=== PATIENT | female | born 2000 | race Hispanic/Latino ===

== ENCOUNTER 2024-02-19 19:46 | Emergency (ER) | payer SELFPAY ==
--- NOTE | ~2024-02-19 | US_ITS ---
EXAMINATION: US OB <=14 wk fetus w TV DATE: 02/20/2024 01:14 INDICATION: Early . TECHNIQUE: Real-time transabdominal and transvaginal pelvic ultrasound was performed. COMPARISON: None. FINDINGS: TRANSABDOMINAL ULTRASOUND: The uterus measures 8.9 x 4.5 x 5.5 cm. TRANSVAGINAL ULTRASOUND: There is an intrauterine gestational sac. A yolk sac is identified. The fet al crown rump length measures 7 mm, which correlates with an estimated gestational age of 6 weeks and 4 day(s) (+/-) 4 day(s). heart motion is identified measuring 132 beats per minute (bpm) by M- mode Doppler. The right ovary measures 2.4 x 2.0 x 2.1 cm. The left ovary measures 2.8 x 1.9 x 2.4 cm . There is no free fluid in the pelvis. IMPRESSION: 1. Single living intrauterine gestation with estimated date of delivery of 10/11/2024. Reviewed, dictated and finalized at location A. IMPRESSION: 1. Single living intrauterine gestation with estimated date of delivery of 10/01.
[2024-02-19 19:55] VITALS: BP 110/58; PULSE 68; RESP 15; TEMP 36.4; O2SAT 99
[2024-02-19 22:16] LABS: BEDSIDEPREGUCG Positive
[2024-02-19 22:25] LABS: Add Urine Microscopic? YES; Appearance Urine Cloudy (Clear); Bacteria Urine 2+ /hpf; Bilirubin Urine Negative (Negative); Blood Urine 1+ (Negative); Color Urine Yellow (Yellow); Glucose Urine UA Negative (Negative); Ketones Urine 3+ mg/dL (Negative); Leukocyte Esterase Ur Trace LEU/UL (Negative); Nitrate Urine Negative (Negative); Non Pathogenic Casts 0-2; Protein Urine Trace mg/dL (Negative); Specific Grav Ur 1.034 (1.001-1.035); Squamous Epithelial Cell Urine Many /hpf (Few); pH Urine 5.5 (5.0-9.0)
[2024-02-19 23:16] LABS: Basophils Absolute Auto 0.1 K/mm3 (0.0-0.1); Basophils Percent Auto 0.5 % (0.2-1.2); Eosinophils Absolute Auto 0.2 K/mm3 (0-0.3); Eosinophils Percent Auto 1.4 % (0-4.4); Hematocrit 35.8 % (37.0-47.0); Hemoglobin 12.4 g/dL (12.0-15.0); Immature Granulocyte Absolute 0.04 K/mm3 (0.00-0.031); Immature Granulocyte Percent A 0.3 % (0-0.5); Lymphocytes Absolute Auto 3.94 K/mm3 (0.9-3.2); Lymphocytes Percent Auto 33.4 % (18.3-44.2); Mean Corpuscular HGB Conc 34.6 g/dl (32-36); Mean Corpuscular Hemoglobin 29.5 pg (26-34); Mean Corpuscular Volume 85.2 fl (80-100); Mean Platelet Volume 10.8 fl (7.4-10.4); Monocytes Absolute Auto 0.8 K/mm3 (0.1-0.6); Monocytes Percent Auto 6.5 % (2.6-8.5); Neutrophils Absolute Auto 6.8 K/mm3 (1.3-6.7); Neutrophils Percent Auto 57.9 % (45.5-73.1); Platelet Count Result 286 k/mm3 (150-375); Red Cell Distribution Width 11.9 % (11.5-14.5); White Blood Count 11.8 K/mm3 (4.5-10.0)
[2024-02-19 23:26] LABS: Alanine Aminotransferase 15 U/L (6-35); Albumin Level 4.4 g/dL (3.5-5.1); Alkaline Phosphatase 77 U/L (38-126); Anion Gap 14 mmol/L (4-12); Aspartate Amino Transferase 22 U/L (14-36); Bilirubin,Total 0.4 mg/dL (0.2-1.3); Blood Urea Nitrogen 11 mg/dL (7-17); Calcium 9.1 mg/dL (8.4-10.2); Carbon Dioxide 22 mmol/L (22-30); Chloride 101 mmol/L (98-107); Estimated Glomerular Filt Rate > 60; Glucose 90 mg/dL (65-110); Lipase 52 U/L (23-300); Potassium 3.7 mmol/L (3.4-5.0); Sodium 137 mmol/L (137-145)
--- NOTE | 2024-02-19 23:40 | ED.GENADULT ---
HPI - General Adult General Chief complaint: Abdominal Pain Stated complaint: abd pain Time Seen by Provider: 02/19/24 21:57 History of Present Illness HPI narrative: This is 24-year-old female at approximately 13 weeks gestation by last menstrual presenting for reddish brown discharge. This started yesterday. Is also associated with crampy abdominal pain down the middle of her abdomen. Patient also feels nauseous and has some lightheadedness. She denies any other complaints Related Data Allergies Allergy/AdvReac Type Severity Reaction Status Date / Time No Known Allergies Allergy Verified 02/19/24 19:47 Exam Narrative: APPEARANCE: No apparent distress. Head: atraumatic. EYES: EOMI, NOSE: Atraumatic NECK: Trachea midline RESPIRATORY: No increased rate of breathing clear to auscultation CARDIOVASCULAR: RRR, ABDOMINAL: Non-distended soft nontender no guarding rebound MUSCULOSKELETAl: No obvious deformities NEURO: Alert. Moving 4/4 extremities SKIN:: Warm, dry. Normal color PSYCHIATRIC: Normal affect Course Vital Signs Vital signs: Vital Signs Temperature 97.6 F 02/19/24 19:55 Pulse Rate 68 02/19/24 19:55 Respiratory Rate 15 02/19/24 19:55 Blood Pressure 110/58 L 02/19/24 19:55 Pulse Oximetry 99 02/19/24 19:55 Oxygen Delivery Room Air 02/19/24 19:55 Temperature 97.6 F 02/19/24 19:55 Pulse Rate 68 02/19/24 19:55 Respiratory Rate 15 02/19/24 19:55 Blood Pressure 110/58 L 02/19/24 19:55 Pulse Oximetry 99 02/19/24 19:55 Oxygen Delivery Room Air 02/19/24 19:55 Medical Decision Making [facility] Narrative Medical decision making narrative: -Course: 24-year-old female presenting with vaginal bleeding in . Urine indicative of infection. Before the ultrasound results or her Rh factor had returned the patient had to leave. Patient left without completing her workup. She was instructed to follow-up with her OBGYN. Given return cautions for bleeding given antibiotics for UTI. Vital Signs Vital Signs: Vital Signs Temperature 97.6 F 02/19/24 19:55 Pulse Rate 68 02/19/24 19:55 Respiratory Rate 15 02/19/24 19:55 Blood Pressure 110/58 L 02/19/24 19:55 Pulse Oximetry 99 02/19/24 19:55 Oxygen Delivery Room Air 02/19/24 19:55 Temperature 97.6 F 02/19/24 19:55 Pulse Rate 68 02/19/24 19:55 Respiratory Rate 15 02/19/24 19:55 Blood Pressure 110/58 L 02/19/24 19:55 Pulse Oximetry 99 02/19/24 19:55 Oxygen Delivery Room Air 02/19/24 19:55 Lab Data 02/19/24 23:09 02/19/24 23:09 Labs: Lab Results 02/19/24 02/19/24 02/19/24 Range/Units 22:13 22:14 23:08 WBC (4.5-10.0) K/mm3 RBC (4.2-5.4) M/mm3 Hgb (12.0-15.0) g/dL Hct (37.0-47.0) % MCV (80-100) fl MCH (26-34) pg MCHC (32-36) g/dl RDW (11.5-14.5) % Plt Count (150-375) k/mm3 MPV (7.4-10.4) fl Immature Gran % (Auto) (0-0.5) % Neut % (Auto) (45.5-73.1) % Lymph % (Auto) (18.3-44.2) % [place] % (Auto) (2.6-8.5) % Eos % (Auto) (0-4.4) % Baso % (Auto) (0.2-1.2) % Lymph # (Auto) (0.9-3.2) K/mm3 [place] # (Auto) (0.1-0.6) K/mm3 Eos # (Auto) (0-0.3) K/mm3 Baso # (Auto) (0.0-0.1) K/mm3 Abs Immat Gran (auto) (0.00-0.031) K/mm3 Absolute Neuts (auto) (1.3-6.7) K/mm3 Absolute Nucleated RBC (0.0-0.012) K/mm3 Nucleated RBC % (0.0-0.2) % Sodium (137-145) mmol/L Potassium (3.4-5.0) mmol/L Chloride (98-107) mmol/L Carbon Dioxide (22-30) mmol/L Anion Gap (4-12) mmol/L BUN (7-17) mg/dL Creatinine (0.7-1.0) mg/dL Estim Creat Clear Calc Estimated GFR (59 - ) Glucose (65-110) mg/dL Calcium (8.4-10.2) mg/dL Total Bilirubin (0.2-1.3) mg/dL AST (14-36) U/L ALT (6-35) U/L Alkaline Phosphatase (38-126) U/L Total Protein (6.3-8.2) g/dL Albumin (3.5-5.1) g/
[2024-02-19] MEDS: SODIUM CHLORIDE 0.9% IV 2,000 ML 999 ML IV CONT (23:49)
[2024-02-19] MEDS: ONDANSETRON INJ 4 MG/2 ML VIAL IV PUSH (23:49)
--- NOTE | 2024-02-20 00:40 | PC.NURSE ---
Pt to US at this time.
[2024-02-20 02:24] VITALS: BP 112/60; PULSE 69; RESP 16; TEMP 36.6; O2SAT 100
== END 2024-02-20 02:26 | disposition home or self-care (01) ==
PROVIDERS: Emergency Provider Emergency Medicine
DX: O20.0 Threatened abortion (principal); Z3A.13 13 weeks gestation of pregnancy
CPT/HCPCS: 36415; 76801; 76817; 80053; 81001; 81025; 83690; 84702; 85025; 85461; 86850; 86900; 86901; 87077; 87086; 87088; 96361; 96374; 99284; J2405; J7030

== ENCOUNTER 2024-04-19 00:09 | Emergency (ER) | payer MEDICAID, SELFPAY ==
[2024-04-19 00:14] VITALS: BP 114/65; PULSE 92; RESP 20; TEMP 36.6; O2SAT 99
[2024-04-19 00:20] VITALS: BP 114/65; PULSE 92; RESP 17; TEMP 36.6; O2SAT 99
--- NOTE | 2024-04-19 00:28 | ED.HA ---
HPI - Headache General Chief Complaint: Headache Stated Complaint: headache Time Seen by Provider: 04/19/24 00:20 History of Present Illness HPI Narrative: Patient is a 24-year-old female who is 15 weeks that presents ER with headache. Ongoing for several days. Associated with fullness in her ears. No change in hearing. No sinus congestion or sore throat or productive cough. Reports generalized aching of the head. Concerned because she had preeclampsia in her last . She is currently seeing Dr. Barr but is planning to transition her care to [facility]. She recently was diagnosed with a vaginal infection of her vagina and is taking an antifungal. No urinary frequency urgency or dysuria. No abdominal pain. No vaginal bleeding. She does have mild nausea and has had trouble eating because of it. Related Data Allergies Allergy/AdvReac Type Severity Reaction Status Date / Time No Known Allergies Allergy Verified 02/19/24 19:47 Review of Systems Review of Systems: All systems reviewed & are unremarkable except as noted in HPI and below Constitutional: Constitutional: Reports no additional constitutional complaints ENT: Reports system reviewed and no additional complaints, except as documented Cardiovascular: Cardiovascular: Reports no additional cardiovascular complaints Respiratory: Respiratory: Reports no additional respiratory complaints Gastrointestinal: Gastrointestinal: Reports no additional gastrointestinal complaints Genitourinary: Genitourinary: Reports no additional female genitourinary complaints Neurologic: Denies syncope, Reports headache(s), Denies focal weakness and Denies numbness Exam Narrative: GENERAL: Well-appearing, well-nourished, and in no acute distress. HEAD: Normocephalic, atraumatic. ENT: Mucous membranes moist. TM's normal bilaterally. Cerumen in the left ear canal w/o impaction. NECK: Supple. CHEST: Clear to auscultation. No respiratory distress. HEART: Regular rate and rhythm. Normal peripheral pulses. ABDOMEN: Soft, nontender, nondistended. EXTREMITIES: Normal range of motion. No edema. SKIN: Warm, dry, no rash. NEURO: Alert and oriented x3. PSYCH: Normal mood and affect. Course Course Emergency Course: Patient hydrated. Feels improved with antiemetics. urinalysis with white blood cells and bacteria. Will treat with cephalexin. Vital Signs Vital signs: Vital Signs Temperature 98 F 04/19/24 00:14 Pulse Rate 92 04/19/24 00:14 Respiratory Rate 20 04/19/24 00:14 Blood Pressure 114/65 04/19/24 00:14 Pulse Oximetry 99 04/19/24 00:14 Oxygen Delivery Room Air 04/19/24 00:14 Temperature 98 F 04/19/24 00:20 Pulse Rate 92 04/19/24 00:20 Respiratory Rate 17 04/19/24 00:20 Blood Pressure 114/65 04/19/24 00:20 Pulse Oximetry 99 04/19/24 00:20 Oxygen Delivery Room Air 04/19/24 00:14 MDM - Headache Lab Data Labs: Lab Results 04/19/24 04/19/24 Range/Units 00:53 00:54 Urine Color Dark yellow (Yellow) Urine Appearance Clear (Clear) Urine pH 5.5 (5.0-9.0) Ur Specific [place] 1.025 (1.001-1.035) Urine Protein Trace (Negative) mg/dL Urine Glucose (UA) Negative (Negative) mg/dL Urine Ketones 4+ H (Negative) mg/dL Ur Blood (Man) Negative (Negative) Urine Nitrate Negative (Negative) Urine Bilirubin Negative (Negative) Urine Urobilinogen 1.0 (<2.0) mg/dL Leukocyte Esterase Rfl 1+ H (Negative) AJ/UL Urine RBC 0-2 (0-2) /hpf Urine WBC 6-10 H (0-3) /hpf Ur Squamous Epith Cells Few (Few) /hpf Urine Bacteria 2+ H /hpf Urine Casts 0-2 Influenza A (RT-PCR) Negative (Negative) Influenza B (RT-PCR) Negative (Negative) RSV (RT-PCR) Negative (Negative) SARS-CoV-2 RNA (RT-PCR) Negative (Negative) Discharge Plan Discharge Clinical Impression: Headache, UTI (urinary tract infection) Patient Dispo
[2024-04-19] MEDS: ONDANSETRON INJ 4 MG/2 ML VIAL IV PUSH (01:09)
[2024-04-19] MEDS: SODIUM CHLORIDE 0.9% IV 1,000 ML 999 ML IV CONT (01:09)
[2024-04-19] MEDS: ACETAMINOPHEN 500 MG TABLET 1000 MG PO (01:18)
[2024-04-19 03:37] LABS: Influenza A QL RT-PCR Negative (Negative); Influenza B QL RT-PCR Negative (Negative); RSV RNA, RT-PCR Negative (Negative); SARS-CoV-2 RNA PCR Negative (Negative)
[2024-04-19 03:42] LABS: Add Urine Microscopic? YES; Appearance Urine Clear (Clear); Bacteria Urine 2+ /hpf; Bilirubin Urine Negative (Negative); Blood Urine Negative (Negative); Color Urine Dark Yellow (Yellow); Glucose Urine UA Negative (Negative); Ketones Urine 4+ mg/dL (Negative); Leukocyte Esterase Ur 1+ LEU/UL (Negative); Nitrate Urine Negative (Negative); Non Pathogenic Casts 0-2; Protein Urine Trace mg/dL (Negative); RBC Urine 0-2 /hpf (0-2); Specific Grav Ur 1.025 (1.001-1.035); Squamous Epithelial Cell Urine Few /hpf (Few); pH Urine 5.5 (5.0-9.0)
== END 2024-04-19 02:27 | disposition home or self-care (01) ==
LOC: ANHED 00:31
PROVIDERS: Emergency Provider Emergency Medicine
DX: O23.42 Unspecified infection of urinary tract in pregnancy, second trimester (principal); N39.0 Urinary tract infection, site not specified; O26.892 Other specified pregnancy related conditions, second trimester; R51.9 Headache, unspecified; Z20.822 Contact with and (suspected) exposure to COVID-19; Z3A.15 15 weeks gestation of pregnancy
CPT/HCPCS: 81001; 87086; 87637; 96361; 96374; 99284; A9270; J2405; J7030

== ENCOUNTER 2024-06-02 02:23 | Outpatient (CLI) | payer MEDICAID, SELFPAY ==
[2024-06-02 00:30] VITALS: BP 108/57; PULSE 95; RESP 16; TEMP 36.6; O2SAT 99
--- NOTE | 2024-06-02 02:19 | PC.NURSE ---
this patient presents to ED ambulatory to ER room 1309, accompanied by male. Patient has complaint of scant vaginal bleeding x's 1 day. Patient states she is and initially stated she did not have any care but later admitted she receives care. Patient is well developed, well kempt. Cardiology Fellow services used for communication.
--- NOTE | 2024-06-02 02:21 | PC.NURSE ---
this patient was taken to OB unit by fishery biologist.
[2024-06-02 03:04] VITALS: BP 104/58; PULSE 88
[2024-06-02] MEDS: FLUCONAZOLE 150 MG TABLET PO (03:30)
--- NOTE | 2024-06-02 03:31 | PC.NURSE ---
[address] CULVER OF PT ARRIVAL AND CURRENT PT STATUS. PT COMPLAINS OF LEAKING DISCHARGE FOR 2 DAYS WITH LIGHT PINK BLOOD NOTED ON TOILET PAPER WHEN WIPING. PT STATES SHE HAS BUMPS ON HER LABIA. ON EXAMINATION, LABIA HAS SOME IRRITATION FROM SCRATCHING WITH VISIBLE REDNESS AND MISSING SKIN. PT STATES THAT SHE HAS BEEN SCRATCHING ALOT DUE TO THE DISCHARGE. ROM+ IS NEGATIVE. PT HAS THICK WHITE DISCHARGE. ORDERS RECEIVED FOR DIFLUCAN 150 MG PO NOW.
== END 2024-06-02 03:36 | disposition still patient (30) ==
LOC: ANHOUTPT 02:47 → ANHOBPP 06-07 07:29
PROVIDERS: Visit Provider Obstetrics & Gynecology
DX: O26.859 Spotting complicating pregnancy, unspecified trimester (principal); Z3A.00 Weeks of gestation of pregnancy not specified
CPT/HCPCS: 99199; A9270

== ENCOUNTER 2024-06-07 14:06 | Emergency (ER) | payer OTHER, SELFPAY ==
--- NOTE | ~2024-06-07 | XR_ITS ---
EXAMINATION: XR chest 2V DATE: 06/07/2024 14:45 INDICATION: Chest pain. Tachycardia. . TECHNIQUE: Frontal and lateral views of the chest were obtained. COMPARISON: None. FINDINGS: There is no pneumonia, pleural effusion, or pneumothorax. The heart size is normal. IMPRESSION: 1. No acute cardiopulmonary disease. Reviewed, dictated and finalized at location A. ING MACHINE OPERATOR
--- NOTE | 2024-06-07 14:14 | ECG_ITS ---
Test Date: 2024-06-07 14:18:15 Measurements Intervals [place] Rate: 89 P: 6 AR: 84 QRS: 37 QRSD: 77 T: 28 QT: 356 QTc: 435 Interpretive Statements SINUS RHYTHM WITH SHORT AR INTERVAL No previous ECG available for comparison Electronically Signed On 06-07-2024 14:33:07 [employer] by Haleigh Macias M.D.
--- NOTE | 2024-06-07 14:26 | ED_ITS ---
HPI - Chest Pain General Chief Complaint: Chest Pain <Jane Cool PA-C - Last Filed: 06/07/24 14:28> Stated Complaint: chest pain <Jane Cool PA-C - Last Filed: 06/07/24 14:28> Time Seen by Provider: 06/07/24 14:20 <Jane Cool PA-C - Last Filed: 06/07/24 14:28> Focused HPI: Patient is a 24-year-old female who presents the ED with report of chest and abdominal pain. Patient reports pain began approximately 2 hours ago after drinking a smoothie for lunch. Pain is present in her epigastric region, extending up into her chest. Has been constant. She feels nauseous, has had an episode of vomiting. Denies shortness of breath. Patient is currently 23 weeks gestation. [place] [facility] is unsure of the [place]. Denies lower abdominal pain. Denies vaginal bleeding. GENERAL: Well-appearing, well-nourished, and in no acute distress. HEAD: Normocephalic, atraumatic. CHEST: Clear to auscultation. ?No respiratory distress. HEART: Regular rate and rhythm.? ABD: TTP in epigastric region and lower midsternal chest. No tenderness throughout lower abdomen. NEURO: ?Alert and oriented x3. PSYCHIATRIC: Mildly anxious. Patient screened in triage and initial orders placed.? ?Additional care and disposition to be based upon?diagnostic testing and treatment. <Jane Cool PA-C - Last Filed: 06/07/24 14:28> Source: patient <Jane Cool PA-C - Last Filed: 06/07/24 14:28> Mode of arrival: wheelchair <Jane Cool PA-C - Last Filed: 06/07/24 14:28> Limitations: no limitations <Jane Cool PA-C - Last Filed: 06/07/24 14:28> language barrier (ESL - medical interpreter Son[employer] #[id number]) <Emely Camara MD - Last Filed: 06/11/24 17:59> History of Present Illness HPI narrative: Concur with the above with the following additions/corrections: 3 female with LMP 11/14/23 and MAGNUS 09/04/23 presents with complaint of chest pain/ epigastric abdominal pain, describes it as in the pit of her stomach. states this has not happened before today was the 1st time it lasted 4 hours and resolved. It was associated with shortness of breath. She denies any fevers but has been having chills. She also notes that she was diaphoretic. She denies any cough hemoptysis. She states the pain was sharp and traveled towards her back as well as from her epigastrium superiorly. she states that she does not believe it is related to food. Denies any nausea or vomiting. No previous problems with this. It has since resolved and not recurred. Her last oral intake was today at 10:00 a.m.. Her last bowel movement was yesterday at 5:00 p.m. and she denies any diarrhea, constipation, bloody bowel. She sees OB Gyne through [facility] can not recall the name. She did travel on 11/06/2019 for but subsequently. She denies a history of DVT orPE. History of previously low blood pressure as well as tachycardia. in regards to cardiac risk factors, no previous diagnosis of hypertension, hyperlipidemia, diabetes mellitus, personal history of myocardial infarction/ TIA/ CVA. No family history of first-degree relative with myocardial infarction before the age of 65. Nonsmoker. <Emely Camara MD - Last Filed: 06/11/24 17:59> Related Data Home Medications: Home Medications ?Medication ?Instructions ?Recorded ?Confirmed ?Last Taken ?Type vitamin#30 30 mg iron-10 cap PO 05/15/24 05/15/24 Unknown History mg iron-folic acid 1 mg-omg3 capsule <Jane Cool PA-C - Last Filed: 06/07/24 14:28> Allergies/Adverse Reactions: Allergies Allergy/AdvReac Type Severity Reaction Status Date / Time No Known Allergies Allergy Verified 06/07/24 14:11 <Jane Cool PA-C - Last Filed: 06/07/24 14:28> [facility] Past Medical History Medical History: Medical History (Updated 06/11/24 @ 17:56 by Emely Camara MD) Tachycardia Low blood pressure Anemia <Jane Cool PA-C - Last Filed: 06/07/24 14:28> Social History Social History: Social History (Updated 05/15/24 @ 11:16 by Ramya Peterson [facility]) Smoking status: Never smoker Alcohol intake: never Substance use: never <Jane Cool PA-C - Last Filed: 06/07/24 14:28> Exam 2 Narrative: GENERAL: Well-appearing, well-nourished, and in no acute distress. HEAD: Normocephalic, atraumatic. EYES: Non injected, non icteric ENT: Nares clear, no rhinorrhea or epistaxis. NECK: Supple. CHEST: Speaking in full sentences. No respiratory distress. HEART: Regular rate and rhythm. . ABDOMEN: Soft, nondistended. No tenderness to palpation throughout. Palpable fundus at the umbilicus is smaller than expected for reported dates. EXTREMITIES: Normal range of motion. No bilateral lower extremity edema. SKIN: Warm, dry, no rash. : Palpable uterine fundus at the umbilicus. NEURO: No focal deficits. Alert and oriented x3. PSYCH: Normal mood and affect. Exceedingly pleasant. Smiling and engaged in care. <Emely Camara MD - Last Filed: 06/11/24 17:59> Course Vital Signs Vital signs: Vital Signs Temperature 98.4 F 06/07/24 15:30 Pulse Rate 84 06/07/24 15:30 Respiratory Rate 17 06/07/24 15:30 Blood Pressure 104/57 L 06/07/24 15:30 Pulse Oximetry 100 06/07/24 15:30 Temperature 98.4 F 06/07/24 20:10 Pulse Rate 88 06/07/24 18:30 Respiratory Rate 18 06/07/24 18:23 Blood Pressure 120/65 06/07/24 18:23 Pulse Oximetry 100 06/07/24 18:23 Oxygen Delivery Room Air 06/07/24 16:15 <Jane Cool PA-C - Last Filed: 06/07/24 14:28> Vital Signs Temperature 98.4 F 06/07/24 15:30 Pulse Rate 84 06/07/24 15:30 Respiratory Rate 17 06/07/24 15:30 Blood Pressure 104/57 L 06/07/24 15:30 Pulse Oximetry 100 06/07/24 15:30 Temperature 98.4 F 06/07/24 20:10 Pulse Rate 88 06/07/24 18:30 Respiratory Rate 18 06/07/24 18:23 Blood Pressure 120/65 06/07/24 18:23 Pulse Oximetry 100 06/07/24 18:23 Oxygen Delivery Room Air 06/07/24 16:15 <Emely Camara MD - Last Filed: 06/11/24 17:59> MDM - Chest Pain MDM Narrative Medical decision making narrative: MSE by LIANET in triage. <Jane Cool PA-C - Last Filed: 06/07/24 14:28> MSE by LIANET in triage. Patient presents with epigastric/chest pain that started today and lasted 4 hours. 24yo F who is 29w3d by stated LMP (11/14/23), 27w3d by stated MAGNUS (09/03/24). In the emergency department she is afebrile with vital signs notable for mild hypotension although reasonable given her age and body habitus. Uterine fundus is approximately at the umbilicus which is small for what was stated. HEART SCORE History 2 highly suspicious 1 moderately suspicious 0 slightly suspicious History score [address] depression/elevation not due to LBBB, LVH, or digoxin [address] depression but LBBB, LVH, nonspecific repolarization changes 0 normal ECG score 0 Age 2 >/= 65 1 45-64 0 <45 Age score 2 Risk factors (HTN, hypercholesterolemia, DM, obesity with BMI >30, current smoker or cessation </=3mo), positive fam hx with parent or sibling with CVD before age 65, atherosclerotic disease (prior UT, PCI/CABG, CVA/TIA, or peripheral arterial disease) 2 >/= 3 risk factors or history of atherosclerotic dz 1 - 1-2 risk factors 0 no known risk factors Risk factor score 0 Initial Troponin 2 >3 times normal limit 1 1-3 times normal limit 0 less than or equal to normal limit Troponin score 0 Total HEART Score 2. Patient got famotidine after triage as well as acetaminophen and does report feeling better at this time. We did extensively discuss this might be related to reflux secondary to the growing fetus as well as relaxation of the esophageal sphincter in the setting of hormone changes. Dimer within normal limits, will not proceed with further work up for PE. heart rate 140 on bedside assessment by L&D nurse. I am informed that the rest of the NST was otherwise unremarkable / without concern. Repeat troponin normal. Viral swab negative. Patient stable for discharge. Provided prescription for famotidine and encouraged to follow up with ObGyn. Also given referrals/contact information for PCP. <Emely Camara MD - Last Filed: 06/11/24 17:59> Differential Diagnosis Differential diagnosis: Likely atypical chest pain, st elevation myocardial infarction, chest pain, biliary colic and other (Pancreatitis, pulmonary embolism; acute viral syndrome; biliary etiology; pneumonia; GERD (especially related to sphincter relaxation)/ gastritis) <Emely Camara MD - Last Filed: 06/11/24 17:59> Lab Data Attestation: I reviewed the patient's lab results. <Emely Camara MD - Last Filed: 06/11/24 17:59> Lab results narrative: Leukocytosis and normocytic anemia (though the latter <1g drop from previous). Urinalysis with ketonuria but no other signs of infectious etiology. <Emely Camara MD - Last Filed: 06/11/24 17:59> Result diagrams: 06/07/24 14:56 06/07/24 14:56 <Jane Cool PA-C - Last Filed: 06/07/24 14:28> Labs: Lab Results 06/07/24 06/07/24 06/07/24 Range/Units 14:56 17:43 18:09 WBC 13.1 H (4.5-10.0) K/mm3 RBC 3.74 L (4.2-5.4) M/mm3 Hgb 11.6 L (12.0-15.0) g/dL Hct 32.9 L (37.0-47.0) % MCV 88.0 (80-100) fl MCH 31.0 (26-34) pg MCHC 35.3 (32-36) g/dl RDW 14.2 (11.5-14.5) % Plt Count 283 (150-375) k/mm3 MPV 10.2 (7.4-10.4) fl Immature Gran % (Auto) 0.6 H (0-0.5) % Neut % (Auto) 81.2 H (45.5-73.1) % Lymph % (Auto) 12.4 L (18.3-44.2) % Bibb % (Auto) 5.1 (2.6-8.5) % Eos % (Auto) 0.4 (0-4.4) % Baso % (Auto) 0.3 (0.2-1.2) % Lymph # (Auto) 1.62 (0.9-3.2) K/mm3 Bibb # (Auto) 0.7 H (0.1-0.6) K/mm3 Eos # (Auto) 0.1 (0-0.3) K/mm3 Baso # (Auto) 0.0 (0.0-0.1) K/mm3 Abs Immat Gran (auto) 0.08 H (0.00-0.031) K/mm3 Absolute Neuts (auto) 10.6 H (1.3-6.7) K/mm3 Absolute Nucleated RBC 0.000 (0.0-0.012) K/mm3 Nucleated RBC % 0.0 (0.0-0.2) % PT 13.2 (11.1-14.7) Seconds INR 1.0 APTT 29.6 (22.3-36.8) Seconds D-Dimer 0.48 (<0.48) ug/mL Sodium 135 L (137-145) mmol/L Potassium 3.7 (3.4-5.0) mmol/L Chloride 108 H (98-107) mmol/L Carbon Dioxide 22 (22-30) mmol/L Anion Gap 5 (4-12) mmol/L BUN 8 (7-17) mg/dL Creatinine 0.40 L (0.7-1.0) mg/dL Estim Creat Clear Calc Not Reportable Estimated GFR > 60 (59 - ) Glucose 94 (65-110) mg/dL Calcium 9.2 (8.4-10.2) mg/dL Total Bilirubin 0.8 (0.2-1.3) mg/dL AST 33 (14-36) U/L ALT 14 (6-35) U/L Alkaline Phosphatase 84 (38-126) U/L Troponin I < 0.012 < 0.012 (0.000-0.034) ng/mL Total Protein 7.0 (6.3-8.2) g/dL Albumin 4.2 (3.5-5.1) g/dL Lipase 75 (23-300) U/L Urine Color Yellow (Yellow) Urine Appearance Clear (Clear) Urine pH 7.5 (5.0-9.0) Ur Specific [place] 1.012 (1.001-1.035) Urine Protein Negative (Negative) mg/dL Urine Glucose (UA) Negative (Negative) mg/dL Urine Ketones 3+ H (Negative) mg/dL Ur Blood (Man) Negative (Negative) Urine Nitrate Negative (Negative) Urine Bilirubin Negative (Negative) Urine Urobilinogen 1.0 (<2.0) mg/dL Leukocyte Esterase Rfl Negative (Negative) AJ/UL Influenza A (RT-PCR) Negative (Negative) Influenza B (RT-PCR) Negative (Negative) RSV (RT-PCR) Negative (Negative) SARS-CoV-2 RNA (RT-PCR) Negative (Negative) <Jane Cool PA-C - Last Filed: 06/07/24 14:28> Lab Results 06/07/24 06/07/24 06/07/24 Range/Units 14:56 17:43 18:09 WBC 13.1 H (4.5-10.0) K/mm3 RBC 3.74 L (4.2-5.4) M/mm3 Hgb 11.6 L (12.0-15.0) g/dL Hct 32.9 L (37.0-47.0) % MCV 88.0 (80-100) fl MCH 31.0 (26-34) pg MCHC 35.3 (32-36) g/dl RDW 14.2 (11.5-14.5) % Plt Count 283 (150-375) k/mm3 MPV 10.2 (7.4-10.4) fl Immature Gran % (Auto) 0.6 H (0-0.5) % Neut % (Auto) 81.2 H (45.5-73.1) % Lymph % (Auto) 12.4 L (18.3-44.2) % Bibb % (Auto) 5.1 (2.6-8.5) % Eos % (Auto) 0.4 (0-4.4) % Baso % (Auto) 0.3 (0.2-1.2) % Lymph # (Auto) 1.62 (0.9-3.2) K/mm3 Bibb # (Auto) 0.7 H (0.1-0.6) K/mm3 Eos # (Auto) 0.1 (0-0.3) K/mm3 Baso # (Auto) 0.0 (0.0-0.1) K/mm3 Abs Immat Gran (auto) 0.08 H (0.00-0.031) K/mm3 Absolute Neuts (auto) 10.6 H (1.3-6.7) K/mm3 Absolute Nucleated RBC 0.000 (0.0-0.012) K/mm3 Nucleated RBC % 0.0 (0.0-0.2) % PT 13.2 (11.1-14.7) Seconds INR 1.0 APTT 29.6 (22.3-36.8) Seconds D-Dimer 0.48 (<0.48) ug/mL Sodium 135 L (137-145) mmol/L Potassium 3.7 (3.4-5.0) mmol/L Chloride 108 H (98-107) mmol/L Carbon Dioxide 22 (22-30) mmol/L Anion Gap 5 (4-12) mmol/L BUN 8 (7-17) mg/dL Creatinine 0.40 L (0.7-1.0) mg/dL Estim Creat Clear Calc Not Reportable Estimated GFR > 60 (59 - ) Glucose 94 (65-110) mg/dL Calcium 9.2 (8.4-10.2) mg/dL Total Bilirubin 0.8 (0.2-1.3) mg/dL AST 33 (14-36) U/L ALT 14 (6-35) U/L Alkaline Phosphatase 84 (38-126) U/L Troponin I < 0.012 < 0.012 (0.000-0.034) ng/mL Total Protein 7.0 (6.3-8.2) g/dL Albumin 4.2 (3.5-5.1) g/dL Lipase 75 (23-300) U/L Urine Color Yellow (Yellow) Urine Appearance Clear (Clear) Urine pH 7.5 (5.0-9.0) Ur Specific [place] 1.012 (1.001-1.035) Urine Protein Negative (Negative) mg/dL Urine Glucose (UA) Negative (Negative) mg/dL Urine Ketones 3+ H (Negative) mg/dL Ur Blood (Man) Negative (Negative) Urine Nitrate Negative (Negative) Urine Bilirubin Negative (Negative) Urine Urobilinogen 1.0 (<2.0) mg/dL Leukocyte Esterase Rfl Negative (Negative) AJ/UL Influenza A (RT-PCR) Negative (Negative) Influenza B (RT-PCR) Negative (Negative) RSV (RT-PCR) Negative (Negative) SARS-CoV-2 RNA (RT-PCR) Negative (Negative) <Emely Camara MD - Last Filed: 06/11/24 17:59> Imaging Data Radiologist's impression: IMPRESSION: 1. No acute cardiopulmonary disease. <Emely Camara MD - Last Filed: 06/11/24 17:59> ECG Data EKG #1: Attestation: I personally reviewed and interpreted this ECG as follows: < Emely Camara MD - Last Filed: 06/11/24 17:59> ECG completion date: 06/07/24 <Emely Camara MD - Last Filed: 06/11/24 17:59> ECG completion time: 14:18 <Emely Camara MD - Last Filed: 06/11/24 17:59> Interpretation: Normal sinus rhythm at a rate of 89 beats per minute. FL interval 84. QRS 77. QT/QTC 356/403. Good R-wave progression across the precordial leads. T-wave inversion in lead 3 but otherwise upright in normal in contiguous inferior leads 2 and AVF. No other T-wave inversions in precordial leads V3 through V6. <Emely Camara MD - Last Filed: 06/11/24 17:59> Discharge Plan Discharge Clinical Impression: Leukocytosis, Normocytic anemia, Ketonuria, Acute epigastric pain, Chest pain due to GERD, Third trimester at less than 36 weeks <Jane Cool PA-C - Last Filed: 06/07/24 14:28> Patient Disposition: Home, Self-Care <Jane Cool PA-C - Last Filed: 06/07/24 14:28> Condition: Stable <HUMBERTO Blackwell Last Filed: 06/07/24 14:28> Instructions: Antibiotic Form, Chest Pain (ED), GERD (Gastroesophageal Reflux Disease) (DC), Abdominal Pain in (ED), Anemia (ED), Epigastric Pain (ED), at 27 to 30 Weeks (ED) <HUMBERTO Blackwell Last Filed: 06/07/24 14:28> Additional Instructions: Follow-up with your art appraiser through [facility]. If you need a primary care physician, the name of a doctor is listed below. Alternatively, there is a provider that speaks Slovenian if you prefer though I do not know if they are accepting patients. Her name is Tequila Rivera ([phone]). You can use the prescribed medications for your symptoms. Return to the emergency department with any new or worsening symptoms. <HUMBERTO Blackwell Last Filed: 06/07/24 14:28> Patient Language: Slovenian <Jane Cool PA-C - Last Filed: 06/07/24 14:28> Prescriptions: New famotidine 10 mg tablet 10 mg PO DAILY PRN (Reason: epigastric abdominal pain) Qty: 14 0RF No Action PNV #[id number] 30 mg iron-10 mg iron-1 mg capsule PO ondansetron 4 mg tablet,disintegrating 4 mg PO Q6H PRN (Reason: nausea and vomiting) Qty: 10 0RF <Jane Cool PA-C - Last Filed: 06/07/24 14:28> Follow-up/Referrals: [facility] [Provider Group] Ole Roque MD [Physician] - (Family practice) UNKNOWN,DOCTOR [Primary Care Provider] - <HUMBERTO Blackwell Last Filed: 06/07/24 14:28> Stand Alone Forms: Work/School Release IP <HUMBERTO Blackwell Last Filed: 06/07/24 14:28> Time of Disposition: 19:56 <Jane Cool PA-C - Last Filed: 06/07/24 14:28> 19:56 <Emely Camara MD - Last Filed: 06/11/24 17:59>
[2024-06-07] MEDS: ACETAMINOPHEN 500 MG TABLET 1000 MG PO (14:53)
[2024-06-07] MEDS: FAMOTIDINE 20 MG/2 ML VIAL IV PUSH (14:53)
[2024-06-07 15:08] LABS: Basophils Percent Auto 0.3 % (0.2-1.2); Eosinophils Absolute Auto 0.1 K/mm3 (0-0.3); Eosinophils Percent Auto 0.4 % (0-4.4); Hematocrit 32.9 % (37.0-47.0); Hemoglobin 11.6 g/dL (12.0-15.0); Immature Granulocyte Absolute 0.08 K/mm3 (0.00-0.031); Immature Granulocyte Percent A 0.6 % (0-0.5); Lymphocytes Absolute Auto 1.62 K/mm3 (0.9-3.2); Lymphocytes Percent Auto 12.4 % (18.3-44.2); Mean Corpuscular HGB Conc 35.3 g/dl (32-36); Mean Platelet Volume 10.2 fl (7.4-10.4); Monocytes Absolute Auto 0.7 K/mm3 (0.1-0.6); Monocytes Percent Auto 5.1 % (2.6-8.5); Neutrophils Absolute Auto 10.6 K/mm3 (1.3-6.7); Neutrophils Percent Auto 81.2 % (45.5-73.1); Platelet Count Result 283 k/mm3 (150-375); Red Blood Count 3.74 M/mm3 (4.2-5.4); Red Cell Distribution Width 14.2 % (11.5-14.5); White Blood Count 13.1 K/mm3 (4.5-10.0)
[2024-06-07 15:18] LABS: Alanine Aminotransferase 14 U/L (6-35); Albumin Level 4.2 g/dL (3.5-5.1); Alkaline Phosphatase 84 U/L (38-126); Anion Gap 5 mmol/L (4-12); Aspartate Amino Transferase 33 U/L (14-36); Bilirubin,Total 0.8 mg/dL (0.2-1.3); Blood Urea Nitrogen 8 mg/dL (7-17); Calcium 9.2 mg/dL (8.4-10.2); Carbon Dioxide 22 mmol/L (22-30); Chloride 108 mmol/L (98-107); Estimated Glomerular Filt Rate > 60; Glucose 94 mg/dL (65-110); Lipase 75 U/L (23-300); Potassium 3.7 mmol/L (3.4-5.0); Sodium 135 mmol/L (137-145)
[2024-06-07 15:19] LABS: Partial Thromboplastin Time 29.6 Seconds (22.3-36.8); Prothrombin Time 13.2 Seconds (11.1-14.7)
[2024-06-07 15:28] LABS: Troponin I < 0.012 ng/mL (0.000-0.034)
[2024-06-07 15:30] VITALS: BP 104/57; PULSE 84; RESP 17; TEMP 36.9; O2SAT 100
[2024-06-07 17:30] VITALS: BP 117/79; PULSE 84; RESP 17; O2SAT 100
[2024-06-07 18:15] LABS: D Dimer 0.48 ug/mL (<0.48)
[2024-06-07 18:21] VITALS: BP 107/51; PULSE 91; RESP 18; TEMP 36.6; O2SAT 100
[2024-06-07 18:23] VITALS: BP 120/65; PULSE 81; RESP 18; TEMP 36.6; O2SAT 100
[2024-06-07 18:24] LABS: Add Urine Microscopic? NO; Appearance Urine Clear (Clear); Bilirubin Urine Negative (Negative); Blood Urine Negative (Negative); Color Urine Yellow (Yellow); Glucose Urine UA Negative (Negative); Ketones Urine 3+ mg/dL (Negative); Leukocyte Esterase Ur Negative LEU/UL (Negative); Nitrate Urine Negative (Negative); Protein Urine Negative (Negative); Specific Grav Ur 1.012 (1.001-1.035); pH Urine 7.5 (5.0-9.0)
[2024-06-07 18:30] VITALS: PULSE 88
[2024-06-07 19:40] LABS: Troponin I < 0.012 ng/mL (0.000-0.034)
[2024-06-07 19:51] LABS: Influenza A QL RT-PCR Negative (Negative); Influenza B QL RT-PCR Negative (Negative); RSV RNA, RT-PCR Negative (Negative); SARS-CoV-2 RNA PCR Negative (Negative)
[2024-06-07 20:10] VITALS: TEMP 36.9
== END 2024-06-07 20:10 | disposition home or self-care (01) ==
PROVIDERS: Emergency Provider Student in an Organized Health Care Education/Training Program
DX: O99.012 Anemia complicating pregnancy, second trimester (principal); Z3A.23 23 weeks gestation of pregnancy; O28.8 Other abnormal findings on antenatal screening of mother; Z20.822 Contact with and (suspected) exposure to COVID-19; D72.829 Elevated white blood cell count, unspecified; R10.13 Epigastric pain; K21.9 Gastro-esophageal reflux disease without esophagitis
CPT/HCPCS: 36415; 71046; 80053; 81003; 83690; 84484; 85025; 85380; 85610; 85730; 87637; 93005; 96374; 99284; A9270

== ENCOUNTER 2024-07-06 19:34 | Observation (INO) | payer OTHER, SELFPAY ==
[2024-07-06 20:24] VITALS: BMI 25.4
--- NOTE | 2024-07-06 20:25 | OBADM ---
This patient, Tequila Mcneil, admitted to the OB room OB Post 116 for observation. Patient/family oriented to hospital policies and general routines including ID bracelet, bed and alarms, visiting hours, pain management, procedures, bathroom and other care routines, personal items, smoking policy, room service/diet, and visiting hours. Patient/Family are encouraged to report perceived risks to care and to ask questions if they do not understand what they are told or what they should do.
[2024-07-06 20:29] VITALS: BP 94/53; PULSE 85
[2024-07-06 20:30] LABS: Add Urine Microscopic? NO; Appearance Urine Clear (Clear); Bilirubin Urine Negative (Negative); Blood Urine Negative (Negative); Color Urine Yellow (Yellow); Glucose Urine UA Negative (Negative); Ketones Urine Negative (Negative); Leukocyte Esterase Ur Negative LEU/UL (Negative); Nitrate Urine Negative (Negative); Protein Urine Negative (Negative); pH Urine 6.5 (5.0-9.0)
--- NOTE | 2024-07-06 20:33 | PC.NURSE ---
Patient describes pain as pure pain. She states that it gets worse after she eats or moves around. Patient points to the epigastric area on her abdomen and says it is only in the middle. Patient states the pain is an 8/10.
--- NOTE | 2024-07-06 20:55 | PC.NURSE ---
RN phoned MD regarding patient arrival and patient complaints. RN notified MD of FHT with no uterine activity. RN notified MD of patient's pain location, as well as rating and how the patient was describing it. RN also notified MD of urine results. MD gave orders, see MAR. MD gave orders to d/c patient if medication helps.
[2024-07-06] MEDS: FAMOTIDINE 20 MG TABLET PO (21:07)
--- NOTE | 2024-07-06 21:45 | PC.NURSE ---
RN at bedside assessing patient's pain. Patient states the medication helped. RN educated patient on heart burn/acid reflux. RN educated patient where she is able to get Pepcid at. Patient does not have any questions at this time. Patient understands d/c instructions. RN notified patient to make an appointment in the office.
--- NOTE | 2024-07-09 08:48 | PM.OBTRLD ---
OB - Triage/Final Diagnosis Visit Information Date of evaluation: 07/06/24 Reason for evaluation: threatened labor Comments/Additional reasons for admission: I have assessed the risk for this patient, Tequila Mcneil, and determined that she would benefit from observation care. Evaluation Laboratory results: Laboratory Tests 07/06/24 20:23 Urine Color Yellow Urine Appearance Clear Urine pH 6.5 Ur Specific [place] 1.010 Urine Protein Negative Urine Glucose (UA) Negative Urine Ketones Negative Ur Blood (Man) Negative Urine Nitrate Negative Urine Bilirubin Negative Urine Urobilinogen 1.0 Leukocyte Esterase Rfl Negative
== END 2024-07-06 21:58 | disposition home or self-care (01) ==
PROVIDERS: Admitting Provider Obstetrics & Gynecology; PCP Obstetrics & Gynecology; Visit Provider Student in an Organized Health Care Education/Training Program
DX: O47.02 False labor before 37 completed weeks of gestation, second trimester (principal); Z3A.26 26 weeks gestation of pregnancy
CPT/HCPCS: 59025; 81003; A9270; G0378; G0379

== ENCOUNTER 2024-07-19 13:47 | Outpatient (CLI) | payer OTHER, SELFPAY ==
[2024-07-19 15:34] LABS: Basophils Percent Auto 0.3 % (0.2-1.2); Eosinophils Absolute Auto 0.1 K/mm3 (0-0.3); Eosinophils Percent Auto 0.9 % (0-4.4); Immature Granulocyte Absolute 0.09 K/mm3 (0.00-0.031); Immature Granulocyte Percent A 0.8 % (0-0.5); Lymphocytes Absolute Auto 1.81 K/mm3 (0.9-3.2); Lymphocytes Percent Auto 15.5 % (18.3-44.2); Mean Corpuscular HGB Conc 34.4 g/dl (32-36); Mean Corpuscular Hemoglobin 31.1 pg (26-34); Mean Corpuscular Volume 90.4 fl (80-100); Monocytes Absolute Auto 0.4 K/mm3 (0.1-0.6); Monocytes Percent Auto 3.6 % (2.6-8.5); Neutrophils Absolute Auto 9.2 K/mm3 (1.3-6.7); Neutrophils Percent Auto 78.9 % (45.5-73.1); Platelet Count Result 253 k/mm3 (150-375); Red Blood Count 3.54 M/mm3 (4.2-5.4); Red Cell Distribution Width 13.3 % (11.5-14.5); White Blood Count 11.7 K/mm3 (4.5-10.0)
[2024-07-19 15:46] LABS: Glucose 1 Hour PP 50gm Dose 128 mg/dL
== END 2024-07-19 13:48 | disposition home or self-care (01) ==
LOC: ANHLAB 13:48
PROVIDERS: PCP Obstetrics & Gynecology; Visit Provider Obstetrics & Gynecology
DX: Z34.90 Encounter for supervision of normal pregnancy, unspecified, unspecified trimester (principal); Z3A.00 Weeks of gestation of pregnancy not specified
CPT/HCPCS: 36415; 82947; 85025

== ENCOUNTER 2024-08-30 14:52 | Outpatient (CLI) | payer OTHER, SELFPAY ==
[2024-08-30 15:13] LABS: Hematocrit 34.2 % (37.0-47.0); Hemoglobin 11.8 g/dL (12.0-15.0); Mean Corpuscular HGB Conc 34.5 g/dl (32-36); Mean Corpuscular Hemoglobin 30.6 pg (26-34); Mean Corpuscular Volume 88.8 fl (80-100); Mean Platelet Volume 9.9 fl (7.4-10.4); Platelet Count Result 257 k/mm3 (150-375); Red Blood Count 3.85 M/mm3 (4.2-5.4); Red Cell Distribution Width 13.3 % (11.5-14.5); White Blood Count 10.4 K/mm3 (4.5-10.0)
[2024-08-30 16:00] LABS: Syphilis IgG/IgM Antibody Negative (Negative)
[2024-08-30 16:23] LABS: HIV 1/2 Ab P24 Ag Result Negative (Negative)
== END 2024-08-30 14:53 | disposition home or self-care (01) ==
LOC: ANHLAB 14:53
PROVIDERS: PCP Obstetrics & Gynecology; Visit Provider Nurse Practitioner Obstetrics & Gynecology
DX: Z34.90 Encounter for supervision of normal pregnancy, unspecified, unspecified trimester (principal)
CPT/HCPCS: 36415; 85027; 86593; 86703; G0432

== ENCOUNTER 2024-09-01 16:01 | Outpatient (CLI) | payer OTHER, SELFPAY ==
[2024-09-01] VITALS (7 sets, daily range): BP systolic 88–107; BP diastolic 34–68; PULSE 86–96; TEMP 36.3
[2024-09-01 16:43] LABS: Add Urine Microscopic? YES; Appearance Urine Clear (Clear); Bacteria Urine 1+ /hpf; Bilirubin Urine Negative (Negative); Blood Urine Negative (Negative); Color Urine Dark Yellow (Yellow); Glucose Urine UA Negative (Negative); Ketones Urine Trace mg/dL (Negative); Leukocyte Esterase Ur 1+ LEU/UL (Negative); Nitrate Urine Negative (Negative); Non Pathogenic Casts 0-2; Protein Urine Trace mg/dL (Negative); RBC Urine 0-2 /hpf (0-2); Specific Grav Ur 1.021 (1.001-1.035); Squamous Epithelial Cell Urine Moderate /hpf (Few)
[2024-09-01 17:31] LABS: Influenza A QL RT-PCR Negative (Negative); Influenza B QL RT-PCR Negative (Negative); RSV RNA, RT-PCR Negative (Negative); SARS-CoV-2 RNA PCR Negative (Negative)
[2024-09-02 05:26] LABS: Creatinine Urine 160.9 mg/dL; Total Protein Urine Random 12 mg/dL; Ur Ttl Prot Creatinine Ratio 0.07 mg/mg (0-0.20)
== END 2024-09-01 17:36 | disposition home or self-care (01) ==
LOC: ANHOBOP 16:05 → ANHOBPP 16:08
PROVIDERS: Student in an Organized Health Care Education/Training Program; Visit Provider Obstetrics & Gynecology
DX: R51.9 Headache, unspecified (principal); R68.83 Chills (without fever)
CPT/HCPCS: 59025; 81001; 82570; 84156; 87086; 87637; 99199

== ENCOUNTER 2024-09-19 14:11 | Outpatient (CLI) | payer OTHER, SELFPAY ==
--- NOTE | ~2024-09-19 | US_ITS ---
EXAMINATION: US OB follow up, uterine size/date discrepancy DATE: 09/19/2024 16:40 CDT INDICATION: Follow-up COMPARISON: None TECHNIQUE: Real-time transabdominal obstetric ultrasound. FINDINGS: 2 para 1 Estimated date of delivery by last menstrual period is 10/11/2024. A single intrauterine gestation is identified in vertex position with the placenta posteriorly within the fundus. cardiac activity is identified at a rate of 149 bpm. Amniotic fluid index measures 5.4 cm (normal GILL ranges from 5 to 25 cm). The deepest vertical pocket measures 3.26 cm (within normal range between 2 and 8 cm). The following biometric data were obtained: Biparietal diameter (BPD): 8.8 cm; head circumference (HC): 32 cm; abdominal circumference (AC): 32 cm; femur length (FL): 6.6 cm. These measurements are concordant. Estimated weight is 2663 g +/- 399 g, which correlates with the 19th percentile when 10/21/2024 is used as estimated date of delivery. As single measurements, these parameters are each equal to the following estimated gestational ages: BPD: 35 weeks 4 days. HC: 36 weeks 3 days. AC: 35 weeks 5 days. FL: 34 weeks 1 days. estimated gestational age based solely on measurements from this exam is 35 weeks 3 days +/- 2 weeks 3 days. Estimated date of delivery by ultrasound is 10/21/2024 IMPRESSION: Single intrauterine gestation with an approximate gestational age of 35 weeks and 3 days, with cardiac activity identified. The weight is in the 19th percentile. Amniotic fluid index is within the lower limits of normal, as detailed above. Reviewed, dictated and finalized at location A. IMPRESSION: Single intrauterine gestation with an approximate gestational age of 35 weeks a nd 3 days, with cardiac activity identified. The weight is in the 19th percentile. Amniotic fluid index is within the lower limits of normal, as detailed above.
--- OUTSIDE RECORDS SUMMARY | 2024-09-19 14:41 | XMS_ITS | Encounter Summary ---
[facility] Organization [facility] Address 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
--- OUTSIDE RECORDS SUMMARY | 2024-09-19 14:41 | XMS_ITS | Encounter Summary ---
[facility] Organization [facility] Address 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
--- OUTSIDE RECORDS SUMMARY | 2024-09-19 14:41 | XMS_ITS | Clinical Summary ---
Author Organization [facility] Address [address] [place] [address] Phone Care Team Providers Care Cpa Tax Name Role Phone Unavailable Primary Care Provider Unavailabl e Encounters Date Type Department Care Team Description 09/18/2024 External Device Data STL ABSTRACTION Provider, Abstract 09/18/2024 External Device Data STL ABSTRACTION Provider, Abstract 09/07/2024 External Device Data STL ABSTRACTION Provider, Abstract 09/06/2024 External Device Data STL ABSTRACTION Provider, Abstract 09/03/2024 External Device Data STL ABSTRACTION Provider, Abstract 08/20/2024 External Device Data STL ABSTRACTION Provider, Abstract 07/25/2024 External Device Data STL ABSTRACTION Provider, Abstract 07/24/2024 External Device Data STL ABSTRACTION Provider, Abstract 07/23/2024 External Device Data STL ABSTRACTION Provider, Abstract 07/16/2024 External Device Data STL ABSTRACTION Provider, Abstract from Last 3 Months Social History Tobacco Use Types Packs/Day Years Used Date Smoking Tobacco: Never Assessed Comments Unknown Sex and Gender Information Value Date Recorded Sex Assigned at Not on file 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
== END 2024-09-19 14:12 | disposition home or self-care (01) ==
PROVIDERS: Visit Provider Obstetrics & Gynecology
DX: O36.5930 Maternal care for other known or suspected poor fetal growth, third trimester, not applicable or unspecified (principal); Z3A.35 35 weeks gestation of pregnancy
CPT/HCPCS: 76816

== ENCOUNTER 2024-09-25 09:47 | Observation (INO) | payer OTHER, SELFPAY ==
[2024-09-25] VITALS (7 sets, daily range): BP systolic 99–110; BP diastolic 61–69; PULSE 71–84; RESP 16; TEMP 36.6; BMI 28.8
--- OUTSIDE RECORDS SUMMARY | 2024-09-25 10:50 | XMS_ITS | Clinical Summary ---
Author Organization 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
--- NOTE | 2024-09-25 11:12 | OBADM ---
This patient, Tequila Mcneil, admitted to the OB room Labor/Delivery/Recovery 105 for observation for cramping and spotting. Patient/family oriented to hospital policies and general routines including ID bracelet, bed and alarms, visiting hours, pain management, procedures, bathroom and other care routines, personal items, smoking policy, room service/diet, and visiting hours. Patient/Family are encouraged to report perceived risks to care and to ask questions if they do not understand what they are told or what they should do.
--- NOTE | 2024-10-10 10:53 | PM.OBTRLD ---
OB - Triage/Final Diagnosis Visit Information Comments/Additional reasons for admission: I have assessed the risk for this patient, ElsieTiago Mcneil, and determined that she would benefit from observation care. Final Diagnosis (1) Spotting complicating , third trimester: Code(s): O26.853 - Spotting complicating , third trimester Status: Acute
== END 2024-09-25 12:44 | disposition home or self-care (01) ==
PROVIDERS: Admitting Provider Obstetrics & Gynecology; PCP Obstetrics & Gynecology; Visit Provider Obstetrics & Gynecology
DX: O26.853 Spotting complicating pregnancy, third trimester (principal); Z3A.37 37 weeks gestation of pregnancy
CPT/HCPCS: G0378; G0379

== ENCOUNTER 2024-10-01 15:59 | Outpatient (RCR) | payer OTHER, SELFPAY ==
[2024-09-24 12:56] VITALS: BP 110/58; PULSE 87
[2024-09-27 16:36] VITALS: BP 107/62; PULSE 93
--- NOTE | ~2024-10-01 | US_ITS ---
EXAMINATION: US OB BPP wo non-stress DATE: 09/24/2024 12:47 INDICATION: Size less than dates. Third trimester. TECHNIQUE: Real-time ultrasound of the pelvis was performed. COMPARISON: Ultrasound 09/19/2024, 02/20/2024 FINDINGS: There is a single living fetus in vertex presentation. The placenta is fundal. heart rate is 1 62 beats per minute (bpm). The amniotic fluid index is 6.1, which is low (5th percentile is 7.5 cm). Biophysical profile performed by the technologist: breathing (30 sec sustained breathing in 30 minutes): 2 out of 2 movement (3 gross body movements in 30 minutes): 2 out of 2 tone (one episode of ytplbzk-syyycovaz-ptrtwao limb movement): 2 out of 2 Amniotic fluid pocket (2 cm): 2 out of 2 Total score: 8 out of 8 IMPRESSION: 1. Single living fetus in vertex presentation. 2. Biophysical profile 8 out of 8. 3. Oligohydramnios. Reviewed, dictated and finalized at location A.
--- NOTE | ~2024-10-01 | US_ITS ---
LIMITED OBSTETRIC ULTRASOUND/BIOPHYSICAL PROFILE Ordering provider: Edwin Becerril MD History: . with GILL, low fluid . Comparison: None. FINDINGS: PRESENTATION: Vertex. Longitudinal lie. PLACENTAL LOCATION: Fundal No previa. HEART RATE: 139 bpm (normal is between 110 to 160 bpm). AMNIOTIC FLUID INDEX: 6.5 cm. 5th percentile is 7.3 cm. 95th percentile is 23.9 cm Largest vertical pocket is 3.2 cm. normal (GILL between 5-25 cm in from 20-35 weeks gestation is considered normal). OTHER: Maternal ovaries not visualized. SCORE: breathing movements: 2 movements: 2 tone: 2 Amniotic fluid volume: 2 Total: 8 IMPRESSION: Normal biophysical profile. Reviewed, dictated and finalized at location A. IMPRESSION: Normal biophysical profile.
--- NOTE | ~2024-10-01 | US_ITS ---
EXAM EXAMINATION: US OB limited DATE: 10/01/2024 18:08 CDT INDICATION: History of oligohydramnios COMPARISON: 09/27/2024 TECHNIQUE: Real-time transabdominal obstetric ultrasound. FINDINGS: 2 para 1. Estimated date of delivery as per patient is 10/10/2024 There is a single intrauterine gestation in vertex presentation. The placenta is posterior within the fundus cardiac activity and movement is noted with a heart rate of 160 beats per minute. Amniotic fluid index measures 4.6 cm (less than 5 cm, which is considered the lower limits of normal at this stage of gestation). IMPRESSION: Single intrauterine gestation in vertex presentation with cardiac activity identified. Redemonstration of oligohydramnios, as detailed above. Reviewed, dictated and finalized at location A. IMPRESSION: Single intrauterine gestation in vertex presentation with cardiac activit y identified. Redemonstration of oligohydramnios, as detailed above.
[2024-10-01 18:29] VITALS: BP 103/54; PULSE 71
== END 2024-10-23 17:14 | disposition home or self-care (01) ==
LOC: ANHOBOP 15:59
PROVIDERS: Visit Provider Obstetrics & Gynecology
DX: O36.5930 Maternal care for other known or suspected poor fetal growth, third trimester, not applicable or unspecified (principal); O41.03X0 Oligohydramnios, third trimester, not applicable or unspecified; Z3A.37 37 weeks gestation of pregnancy
CPT/HCPCS: 59025; 76815; 76819

== ENCOUNTER 2024-10-01 20:42 | Inpatient (IN) | payer OTHER, SELFPAY ==
[2024-10-01] VITALS (26 sets, daily range): BP systolic 100–116; BP diastolic 64–74; PULSE 65–84; RESP 16; TEMP 36.4; O2SAT 98–100; BMI 28.5
--- NOTE | 2024-10-01 20:42 | PC.NURSE ---
Pt arrives to unit for continuous monitoring, orders received by Dr. Muñoz for NPO diet, Ambien if pt wants a sleep aid, and ultrasound for GILL check in the morning.
--- OUTSIDE RECORDS SUMMARY | 2024-10-01 20:51 | XMS_ITS | Data Portability ---
Author Organization [employer] , [facility] Address [address] [place] [address] Assessment No assessment recorded. Plan of Treatment Reminders Order Date Submit Date Provider Last Modified By Organization Details Last Modified Time Details Appointments None recorded. Lab genetic screen, unspecified specimen - n/a 2023 BERNARDO Hugo, [address] [facility], [place], [address], 22:17:27 hemoglobin A1c, QN, blood 2023 [employer], [address] [place], [address], 11:25:23 abo group + rh type, blood 2023 [facility], [address] [facility], [place], [address], 17:37:26 CBC w/ auto diff 2023 [facility] [facility], [address] [place], [address], 11:46:09 CT + NG DNA, PCR, unspecified specimen 2023 [employer], [address] [place], [address], 15:32:06 drug of abuse panel, urine 2023 [facility], [address] [place], [address], 13:48:06 obstetric screen + HIV, serum or blood 2023 PALMYRA [facility], [address] [place], [address], 13:09:02 measles igg Ab, serum 2023 [facility], [address] [place], [address], 17:37:25 culture, urine 2023 [employer], [address] [place], [address], 21:59:37 varicella-z jackie igg Ab screen, serum 2023 [employer], [address] [place], [address], 17:37:24 hemoglobino yaw profile, blood 2023 [employer], [address] [place], [address], 17:37:24 antibody screen, serum or plasma 2023 [facility] [facility], [address] [place], [address], 17:37:25 aneuploidy risk, chromosome specific circulating cell free (ccf) DNA, maternal serum - n/a 2023 [facility], [address] [facility], [place], [address], 18:30:17 bacterial vaginosis + vaginitis panel, vaginal 2023 [facility], [address] [place], [address], 15:32:08 test, urine 2023 024 [email or web address] [facility], [address] [facility], [place], [address], 09:57:50 Referral None recorded. Procedures None recorded. Surgeries None recorded. Imaging US, obstetric, transvagina l 2023 024 [email or web address] [id number] In-Office Order, Internal Use Only DO Not Attach Compendium DO Not Attach Compendium, Do Not Delete/merge, [address] 12:00:57 Medication Orders ondansetron 4 mg disintegrat ing tablet 2023 [facility], [address] [place], [address], 18:11:38 pyridoxine (vitamin B6) 25 mg tablet 2023 024 [facility], [address] [place], [address], 4 11:58:33 Unisom (doxylamine ) 25 mg tablet 2023 024 [facility], [address] [place], [address], 4 11:58:31 Patient TargetsNo targets recorded. Patient Instructions Encounter Date Encounter Id Patient Instructions Last Modified By Organization Details Last Modified Time 03/11/2024 [id number] extreme nausea and vomiting in : care instructions [email or web address] Not available 03/11/2024 11:58:23 Reason for Referral None Reported. Results Created Date Observation Date Name Description Value Unit Range Abnormal Flag Note LastModifiedBy Organization Detail LastModifiedTime 03/11/20 24 03/11/2024 pregn esvin test, urine HCG positi ve Not Available [facility] [address] [place], [address], 03/11/2024 09:47:53 04/05/2004/06/2024 DRUG ABUSE PANEL 7 W/CON FIRM amphetamines Negati ve negati ve normal Not Available [facility] [address] [place], [address], 04/06/2024 13:48:06 04/05/2004/06/2024 DRUG ABUSE PANEL 7 W/CON FIRM barbiturates Negati ve negati ve normal Not Available [facility] [address] [place], [address], 04/06/2024 13:48:06 04/05/2004/06/2024 DRUG ABUSE PANEL 7 W/CON FIRM benzodiazepi cesilia Negati ve negati ve normal Not Available [facility] [address] [place], [address], 04/06/2024 13:48:06 04/05/2004/06/2024 DRUG ABUSE PANEL 7 W/CON FIRM cocaine metabolites Negati ve negati ve normal Not Available [facility] [address] [place], [address], 04/06/2024 13:48:06 04/05/2004/06/2024 DRUG ABUSE PANEL 7 W/CON FIRM cannabinoids Negati ve negati ve normal Not Available [facility] [address] [place], [address], 04/06/2024 13:48:06 04/05/2004/06/2024 DRUG ABUSE PANEL 7 W/CON FIRM methadone Negati ve negati ve normal Not Available [facility] [address] [place], [address], 04/06/2024 13:48:06 04/05/2004/06/2024 DRUG ABUSE PANEL 7 W/CON FIRM opiates Negati ve negati ve normal Not Available [facility] [address] [place], [address], 04/06/2024 13:48:06 04/05/20 24 04/06/2024 DRUG ABUSE PANEL 7 W/CON FIRM creatinine, urine 31 mg/dL 20 - 275 normal Not Available [facility] [address] [place], [address], 04/06/2024 13:48:06 04/05/20 24 04/06/2024 CULTU RE, URINE , ROUTI NE culture, urine, routine SEE NOTE CULTU RE, URINE , ROUTI NE Micro Numbe r: [id number] Test Statu s: Final Speci men Sourc e: Urine Speci men Quali ty: Adequ ate Resul t: No Growt h Not Available [facility] [address] [place], [address], 04/06/2024 21:59:36 04/05/2004/08/2024 CT/NG chlamydia trachomatis CT neg negati ve normal This repor t is inten ded for us in clini zuly monit oring and manag ement of patie nts. It is not inten ded for use in medic al-le gal appli catio n. Not Available [facility] [address] [place], [address], 04/08/2024 15:32:06 04/05/20 24 04/08/2024 CT/NG neisseria gonorrhoeae GC neg negati ve normal This repor t is inten ded for us in clini zuly monit oring and manag ement of patie nts. It is not inten ded for use in medic al-le gal appli catio n. Not Available [facility] [address] [place], [address], 04/08/2024 15:32:06 04/05/20 24 04/08/2024 VAGIN ITIS PLUS STD PANEL bacterial vaginosis BV neg negati ve normal Not Available [facility] [address] [place], [address], 04/08/2024 15:32:08 04/05/20 24 04/08/2024 VAGIN ITIS PLUS STD PANEL tanika species C. spp POS negati ve abnormal Not Available [facility] [address] [place] [address], [address], 04/08/2024 15:32:08 04/05/20 24 04/08/2024 VAGIN ITIS PLUS STD PANEL tanika glabrata C. gla neg negati ve normal Not Available [facility] [address] [place] [address], [address], 04/08/2024 15:32:08 04/05/20 24 04/08/2024 VAGIN ITIS PLUS STD PANEL trichomonas vaginalis CV/TV TRICH neg negati ve normal Not Available [facility] [address] [place], [address], 04/08/2024 15:32:08 04/05/20 24 04/08/2024 VAGIN ITIS PLUS STD PANEL chlamydia trachomatis CT neg negati ve normal This repor t is inten ded for us in clini zuly monit oring and manag ement of patie nts. It is not inten ded for use in medic al-le gal appli catio n. Not Available [facility] [address] [place] [address], [address], 04/08/2024 15:32:08 04/05/20 24 04/08/2024 VAGIN ITIS PLUS STD PANEL neisseria gonorrhoeae GC neg negati ve normal This repor t is inten ded for us in clini zuly monit oring and manag ement of patie nts. It is not inten ded for use in medic al-le gal appli catio n. Not Available [facility] [address] [place] [address], [address], 04/08/2024 15:32:08 04/08/20 24 04/09/2024 HEMOG LOBIN A1C hemoglobin A1C 5.0 % <5.7 normal The refer ence range for HbA1c is indic ated in the table below . Sugge sted Diagn osis =6.5% Consi stent with diabe cookie 5.7 6.4% Consi stent with incre ased risk for diabe cookie (pred iabet ic) <5.7% Consi stent with the absen ce of diabe cookie Not Available [facility] [address] [place], [address], 04/09/2024 11:25:23 04/08/20 24 04/09/2024 CBC (INCL UDES DIFF/ PLT) WBC 8.7 thous and/u L 4.0 - 9.8 normal Not Available [facility] [address] [place] [address], [address], 04/09/2024 11:46:08 04/08/2004/09/2024 CBC (INCL UDES DIFF/ PLT) RBC 4.0 edin on/uL 3.9 - 4.9 normal Not Available [facility] [address] [place] [address], [address], 04/09/2024 11:46:08 04/08/20 24 04/09/2024 CBC (INCL UDES DIFF/ PLT) hemoglobin 11.7 g/dL 11.8 - 14.8 low Not Available [facility] [address] [place] [address], [address], 04/09/2024 11:46:08 04/08/20 24 04/09/2024 CBC (INCL UDES DIFF/ PLT) hematocrit 33.8 % 35.5 - 44.0 low Not Available [facility] [address] [place] [address], [address], 04/09/2024 11:46:08 04/08/20 24 04/09/2024 CBC (INCL UDES DIFF/ PLT) MCV 85.4 fL 82.0 - 99.0 normal Not Available [facility] [address] [place] [address], [address], 04/09/2024 11:46:08 04/08/20 24 04/09/2024 CBC (INCL UDES DIFF/ PLT) MCH 29.5 pg 27.2 - 32.6 normal Not Available [facility] [address] [place] [address], [address], 04/09/2024 11:46:08 04/08/20 24 04/09/2024 CBC (INCL UDES DIFF/ PLT) MCHC 34.6 g/dL 31.5 - 35.5 normal Not Available [address], [address], 04/09/2024 11:46:08 04/08/2004/09/2024 CBC (INCL UDES DIFF/ PLT) RDW-CV 12.8 % 11.5 - 14.5 normal Not Available [address], [address], 04/09/2024 11:46:08 04/08/2004/09/2024 CBC (INCL UDES DIFF/ PLT) platelet 223 thous and/u L 140 - 350 normal Not Available [address], [address], 04/09/2024 11:46:08 04/08/20 24 04/09/2024 CBC (INCL UDES DIFF/ PLT) MPV 12.1 fL 9.3 - 12.4 normal Not Available [address], [address], 04/09/2024 11:46:08 04/08/20 24 04/09/2024 CBC (INCL UDES DIFF/ PLT) absolute neutrophil 6.52 thous and/u L 1.90 - 7.00 normal Not Available [address], [address], 04/09/2024 11:46:08 04/08/20 24 04/09/2024 CBC (INCL UDES DIFF/ PLT) absolute lymphocyte 1.66 thous and/u L 0.70 - 4.50 normal Not Available [address], [address], 04/09/2024 11:46:08 04/08/20 24 04/09/2024 CBC (INCL UDES DIFF/ PLT) absolute monocyte 0.38 thous and/u L 0.10 - 1.30 normal Not Available [address], [address], 04/09/2024 11:46:08 04/08/20 24 04/09/2024 CBC (INCL UDES DIFF/ PLT) absolute eosinophil 0.08 thous and/u L <0.70 normal Not Available [address], [address], 04/09/2024 11:46:08 04/08/20 24 04/09/2024 CBC (INCL UDES DIFF/ PLT) absolute basophil 0.03 thous and/u L <0.20 normal Not Available [address], [address], 04/09/2024 11:46:08 04/08/20 24 04/09/2024 CBC (INCL UDES DIFF/ PLT) absolute immature granulocyte 0.01 thous and/u L <0.03 normal Not Available [address], [address], 04/09/2024 11:46:08 04/08/2004/09/2024 OB PANEL - STD BLOOD WORK hep BS Ag Non-Re active non-re active normal Not Available [address], [address], 04/09/2024 13:09:02 04/08/2004/09/2024 OB PANEL - STD BLOOD WORK hep C Ab Non-Re active non-re active normal Not Available [address], [address], 04/09/2024 13:09:02 04/08/2004/09/2024 OB PANEL - STD BLOOD WORK HIV 1/2 Ag/Ab Non-Re active non-re active normal Not Available [address], [address], 04/09/2024 13:09:02 04/08/2004/09/2024 OB PANEL - STD BLOOD WORK syphilis Ab Non-Re active non-re active normal Not Available [address], [address], 04/09/2024 13:09:02 04/08/20 24 04/09/2024 OB PANEL - STD BLOOD WORK rubella Ab IgG 14.1 IU/mL normal INTER PRETI VE INFOR MATIO N: Rubel la Antib sandra, IgG. < 5.0 IU/mL ..... ..... . Not consi stent with immun ity 5.0 - 9.9 IU/mL ..... . Equiv ocal: Indet ermin ate-R epeat testi ng in 10-14 days may be helpf ul. > or = 10.0 IU/mL ... Consi stent with immun ity The prese nce of Rubel la IgG antib sandra sugge st respo nse to immun izati on or prior /curr ent expos ure to the Rubel la virus . Not Available [address], [address], 04/09/2024 13:09:02 04/08/20 24 04/10/2024 VARIC ASAD RICE R VIRUS ANTIB SANDRA (IGG) varicella zoster virus antibody (IgG) <1.00 S/co low Signa l to Cut-o ff S/CO Inter preta tion ----- ---- ----- ----- ----- ----- -- <1.00 Negat shell - Antib sandra not detec donaldo > or = 1.00 Posit shell - Antib sandra detec donaldo A posit shell resul t indic ates that the patie nt has antib sandar to VZV but does not diffe renti ate betwe en an activ e or past infec tion. The clini zuly diagn osis must be inter prete d in conju nctio n with the clini zuly signs and sympt oms of the patie nt. This assay relia shelbie measu res immun ity due to previ ous infec tion but may not be sensi tive enoug h to detec t antib odies induc ed by vacci natio n. Thus, a negat shell resul t in a vacci nated indiv idual does not neces saril y indic ate susce ptibi lity to VZV infec tion. A more sensi tive test for vacci natio n-ind uced immun ity is Varic asad Zoste r Virus Antib sandra Immun ity Scree n, ACIF. Not Available [facility] [address] [place], [address], 04/10/2024 17:37:24 04/08/2004/10/2024 HEMOG LOBIN OPATH Y EVALU ATION red blood cell count 4.02 edin on/uL 3.80-5 .10 Not Available [address] [address] [place], [address], 04/10/2024 17:37:24 04/08/2004/10/2024 HEMOG LOBIN OPATH Y EVALU ATION hemoglobin 11.8 g/dL 11.7-1 5.5 Not Available [address] [address] [place], [address], 04/10/2024 17:37:24 04/08/20 24 04/10/2024 HEMOG LOBIN OPATH Y EVALU ATION hematocrit 36.9 % 35.0-4 5.0 Not Available [address] [address] [place], [address], 04/10/2024 17:37:24 04/08/2004/10/2024 HEMOG LOBIN OPATH Y EVALU ATION MCV 91.8 fL 80.0-1 00.0 Not Available [address], [address], 04/10/2024 17:37:24 04/08/20 24 04/10/2024 HEMOG LOBIN OPATH Y EVALU ATION MCH 29.4 pg 27.0-3 3.0 Not Available [address] [address] [place], [address], 04/10/2024 17:37:24 04/08/2004/10/2024 HEMOG LOBIN OPATH Y EVALU ATION RDW 13.6 % 11.0-1 5.0 Not Available [address] [address] [place], [address], 04/10/2024 17:37:24 04/08/2004/10/2024 HEMOG LOBIN OPATH Y EVALU ATION hemoglobin A 97.1 % >96.0 Not Available [address] [place], [address], 04/10/2024 17:37:24 04/08/2004/10/2024 HEMOG LOBIN OPATH Y EVALU ATION hemoglobin F <1.0 % <2.0 Not Available [address] [place], [address], 04/10/2024 17:37:24 04/08/2004/10/2024 HEMOG LOBIN OPATH Y EVALU ATION hemoglobin A2 (quant) 2.9 % 2.0-3. 2 Not Available [address] [place], [address], 04/10/2024 17:37:24 04/08/2004/10/2024 HEMOG LOBIN OPATH Y EVALU ATION interpretati on Katelynn l pheno type. Katelynn l hemog lobin distr ibuti on, no HgS, HgC or other abnor mal hemog lobin obser jackelyn. Not Available [address] [place], [address], 04/10/2024 17:37:24 04/08/2004/10/2024 MEASL ES AB (IGG) , IMMUN E STATU S measles Ab (IgG), immune status 26.50 AU/mL normal AU/mL Inter preta tion ----- ----- ----- ---- <13.5 0 Not consi stent with immun ity 13.50 -16.4 9 Equiv ocal >16.4 9 Consi stent with immun ity The prese nce of measl es IgG sugge sts immun izati on or past or curre nt infec tion with measl es virus . For addit ional infor cedric vera e refer to http: //[facility] n.Que stDia gnost ics.c om/fa q/FAQ 162 (This link is being provi ded for infor matio nal/ educa yuan l purpo ses only. ) Not Available [employer] [address] [address] [place], [address], 04/10/2024 17:37:25 04/08/20 24 04/10/2024 ANTIB SANDRA SCREE N, RBC W/REF L ID, TITER AND AG antibody screen, RBC w/refl id, titer and Ag NO ANTIBO DIES DETECT ED normal Refer ence range No antib odies detec donaldo This assay is a scree lyudmila test for the detec tion of red blood cell antib odies . The test is not to be used for pretr ansfu diana scree lyudmila or for the medic al manag ement of an alloi mmuni zed pregn esvin. Not Available [address] [address] [place], [address], 04/10/2024 17:37:25 04/08/20 24 04/10/2024 ABO GROUP AND RH TYPE ABO group O Not Available [facility] [address] [address] [place], [address], 04/10/2024 17:37:26 04/08/20 24 04/10/2024 ABO GROUP AND RH TYPE Rh type RH(D) POSITI VE For addit ional infor cedric vera e refer to http: //[facility] n.Que stDia gnost ics.c om/fa q/FAQ 111 (This link is being provi ded for infor matio nal/ educa yuan l purpo ses only. ) Not Available [facility] [address] [address], [place], [address], 04/10/2024 17:37:26 04/08/20 24 04/08/2024 [UNIT Y] ANEUP LOIDY NIPT fraction 7.2% normal Not Available [facility] [address] [facility], [place], [address], 04/12/2024 18:30:16 04/08/20 24 04/08/2024 [UNIT Y] ANEUP LOIDY NIPT Rh(D) nipt RhD DETECT ED normal Not Available [facility] [address] [facility], [place], [address], 04/12/2024 18:30:16 04/08/20 24 04/08/2024 [UNIT Y] ANEUP LOIDY NIPT sex chromosome aneuploidy NOT DETECT ED normal Not Available [facility] [address] [facility], [place], [address], 04/12/2024 18:30:16 04/08/20 24 04/08/2024 [UNIT Y] ANEUP LOIDY NIPT monosomy X LOW RISK <1 in 10,000 normal Not Available [facility] [address] [facility], [place], [address], 04/12/2024 18:30:16 04/08/20 24 04/08/2024 [UNIT Y] ANEUP LOIDY NIPT trisomy 13 LOW RISK <1 in 10,000 normal Not Available [facility] [address] [facility], [place], [address], 04/12/2024 18:30:16 04/08/20 24 04/08/2024 [UNIT Y] ANEUP LOIDY NIPT trisomy 18 LOW RISK <1 in 10,000 normal Not Available [facility] [address] [facility] [place], [address], 04/12/2024 18:30:16 04/08/20 24 04/08/2024 [UNIT Y] ANEUP LOIDY NIPT trisomy 21 LOW RISK <1 in 10,000 normal Not Available [facility] [address] [facility], [place], [address], 04/12/2024 18:30:16 04/08/20 24 04/08/2024 [UNIT Y] ANEUP LOIDY NIPT sex MALE normal Not Available [facility] [address], [place], [address], 04/12/2024 18:30:16 04/08/20 24 04/08/2024 [UNIT Y] ANEUP LOIDY NIPT gestation SINGLE TON normal Not Available [facility] [address] [facility], [place], [address], 04/12/2024 18:30:16 04/08/20 24 04/08/2024 [UNIT Y] ANEUP LOIDY NIPT for detailed report, see pdf See PDF normal Not Available [facility] [address] [facility], [place], [address], 04/12/2024 18:30:16 04/08/20 24 04/08/2024 [UNIT Y] LOWELL Garza sickle cell disease/beta -thalassemia /hemoglobino pathies carrier screen NEGATI VE normal Not Available [facility] [address] [facility], [place], [address], 04/12/2024 22:17:27 04/08/20 24 04/08/2024 [UNIT Y] LOWELL Garza alpha-thalas semia carrier screen NEGATI VE normal Not Available [facility] [address] [facility], [place], [address], 04/12/2024 22:17:27 04/08/20 24 04/08/2024 [UNIT Y] LOWELL Garza cystic fibrosis carrier screen NEGATI VE normal Not Available [facility] [address] [facility] [place], [address], 04/12/2024 22:17:27 04/08/20 24 04/08/2024 [UNIT Y] LOWELL Garza spinal muscular atrophy carrier screen NEGATI VE 2 SMN1 copies , SNP not presen t normal Not Available [facility] [address], [place], [address], 04/12/2024 22:17:27 04/08/20 24 04/08/2024 [UNIT Y] LOWELL Garza for detailed report, see pdf See PDF normal Not Available [facility] [address], [place], [address], 04/12/2024 22:17:27 03/11/20 24 03/11/2024 US, obste tric, trans vagin al No observ ation record ed. [email or web address] [facility] [address], [place], [address], 03/11/2024 12:25:22 Result Notes None recorded. Problems Name Problem SNOMED Code Status Onset Date Resolution Date Notes Provider Name and Address Organization Details Recorded Time [id number] Active 024 Tramea Radha null, COUNT INCLUDES [facility] IV 13:32:59 Problem Notes None recorded. Procedures Surgical History None recorded. Imaging Results Imaging Date Name Status LastModified by Organization Details LastModified Time 03/11/2024 US, obstetric, transvaginal completed [email or web address] [facility] [address], [place], [address], 03/11/2024 12:25:22 Procedure Notes None recorded. Medical Equipment None Reported. Medications Name Sig Start Date Stop Date Status Note LastModified by Organization Details LastModified Time pyridoxine (vitamin B6) 25 mg tablet Take 1 tablet 3 times a day by oral route for 30 days. 2023 active Not Available Not Available Not Avai lable Diflucan 150 mg tablet 1 tablet po every 2023 active Not Available Not Available Not Avai lable cephalexin 500 mg capsule TAKE 1 CAPSULE BY MOUTH THREE TIMES DAILY FOR 5 DAYS active Not Available Not Available No t Available ondansetron 4 mg disintegrating tablet DISSOLVE 1 TABLET IN MOUTH EVERY 6 HOURS NEEDED FOR NAUSEA AND VOMITING active Not Available Not Available No t Available Unisom (doxylamine) 25 mg tablet Take 1/2 or 1 tablet at bedtime 2023 active Not Available Not Available Not Avai lable Vitamin active Not Available Not Available Not Available Vitals Date Recorded Body weight Body temperature Systolic blood pressure Diastolic blood pressure Provider Name and Address Organization Details Last Updated DateTime 03/11/2024 72723.46 g 96.2 [degF] 108 mm[Hg] 68 mm[Hg] Telly Odell [employer] [facility] 4 10:16:47 Date Recorded Body height Body mass index (BMI) Body weight Body temperature Systolic blood pressure Diastolic blood pressure Provider Name and Address Organization Details Last Updated DateTime 160.02 cm 28 kg/m2 27307.3 61625 g 97.4 [degF] 116 mm[Hg] 72 mm[Hg] Elma Marcelino [employer] [facility] 4 17:30:49 Social History Question Answer Notes LastModified by Organizat ion Details LastModified Time Tobacco Smoking Status Never Smoker [facility]estina Odell [place] [facility] 03/11/2024 10:22:11 What Is Your Level Of Alcohol Consumption? None Information not available 03/11/2024 Are You Blind Or Do You Have Difficulty Seeing? No [email or web address] Information not available 03/11/2024 Are You Deaf Or Do You Have Serious Difficulty Hearing? No [email or web address] Information not available 03/11/2024 What Type Of Diet Are You Following? REGULAR Information not available 04/05/2024 How Many Children Do You Have? 1 Information not available 04/05/2024 What Is Your Relationship Status? Single [email or web address] Information not available 03/11/2024 Are You Sexually Active? Yes Information not available 04/05/2024 Do You Use Any Illicit Or Recreational Drugs? No [email or web address] Information not available 03/11/2024 Do You Or Have You Ever Used Any Other Forms Of Tobacco Or Nicotine? No [email or web address] Information not available 03/11/2024 Sex: Unknown Functional Status Question Answer Note LastModified by Organization D etails LastModified Time What is your exercise level? None Information not available 04/05/2024 Mental Status None recorded. Family History Nothing Reported. Medical History Condition Response Other Cancer N High Blood Pressure N Colon Cancer N Cytomegalovirus N Hyperthyroidism N MRSA N Blood Transfusion N Herpes (HSV) N Breast Cancer N Lung Cancer N Depression N Hypothyroidism N Incontinence N Panic Attacks N Neurological Disorder N Deep Vein Thrombosis N Anxiety Disorder N Autoimmune disease N Arthritis N Shingles N Tuberculosis/Positive PPD N Infertility N Polycystic Ovarian Syndrome N Cervical Cancer N Hematuria N Chlamydia N Varicosities N Stroke N Seasonal allergies N Crohn's Disease N Alzheimer's/Dementia N COPD/Emphysema N Endometriosis N HPV/Genital Warts N IBS (Irritable Bowel Syndrome) N History of Abnormal Pap N High Cholesterol N Liver Disease N Fibromyalgia N Kidney Infection N Ulcer N Kidney Disease N HIV N Gallbladder disease N Sickle Cell Disease/Trait N Von Willebrand disease N ADD/ADHD N Eating Disorder N Anemia N Diabetes Mellitus (non-insulin dependent ) N Ovarian Problems N Multiple Sclerosis N Gonorrhea N Frequent Urinary Tract infections N Osteopenia N Headaches/migraines N GERD (reflux) N Ovarian Cancer N Diabetes (insulin dependent) N Seizures/Epilepsy N Breast Problems N Fibroids N Heart Attack N Asthma N Lupus N Endometrial Cancer N Rubella N Blood Clotting Disorder N Bipolar Disorder N Diabetes Mellitus (during ) N Ulcerative Colitis N Hepatitis N Heart Disease N Pulmonary Embolism N RPR N Chicken Pox N Osteoporosis N Gynecological History Statement/Question Response Date of last HPV Flow Moderate Date of LMP 11/14/2023 HPV Vaccine N Duration of Flow (days) 5 Current Control Method Age at Menarche 13 Obstetrics History GPAL:G 2 P 1 0 0 1 Type Value Full Term 1 Living 1 Total 2 Past Encounters Encounter ID Performer Location Encounter Start Date Encounter Closed Date Diagnosis/Indication Diagnosis SNOMED-CT Code Diagnosis ICD10 Code Diagnosis Note [id number] KATHY LOMBARDI NP [facility] [facility] [address] [place] [address] 03/11/2024 09:19:10 03/11/2024 12:00:57 detection examination [id number] Z32.01 Z32.00 Missed period [id number] N 92.6 Pt presents today for a confirmati on of visit. has not been previously confirmed at another healthcare facility. Pt voiced that she is happy about this . TVUS today showed:IUP with Cardiac Activity. MAGNUS based on this US. MAGNUS consistent with LMP. MAGNUS:10/05/24 Gestationa l Age:10 w2 dFHT:171 First trimester teaching provided.- --Foods and activities to avoid---We ight gain recommenda tions based on BMI---Safe meds---Tam entation to practice-- -Delivery locations- --GÉNESIS visit progressio n---Prenat al vitamins daily---To xoplasmosi s precaution s reviewed-- -[facility] Guide; What to expect on your maternity journey -- -S/S of SAB reviewed and when to seek care RTC for 1st OB, Labs, and Physical. --BMI: Nausea [id number] R11.0 [id number] KATHY LOMBARDI NP [facility] [address] [place] [address] 04/05/2024 17:05:21 04/08/2024 17:34:02 screening [id number] Z36.89 Pt comes in today for a New/First OB visit.Gest ation: 13w 6dEDD: 10/05/2024 -- PMH: No PMH-- Medication s: Taking daily PNV,B6 and unisom-- Previous OB History: Vaginal delivery?- - Mom/Sister s with hx of Pre-Eclamp rigoberto:denies -- History of Genital HSV:denies -- Genetic Questions in OB Episode Done-- Accepts [employer]. Would like to know gender. Discussed logging on to the [employer] portal to find Gender Results-- PAP up to date -- ACOG recomends TSH to be done at 1st OB if indicated: Symptoms, history of thyroid disease or thyroid peroxidase antibodies , family history, goiter, autoimmune disease, Type 1 DM, Infertilit y or reccurent miscarriag e, BMI >40 POC-- NOB labs done today-- Accepts [employer]-- PAP due-- Pre-Pregna ncy BMI:29-- RTC 4 weeks Guide: Given and reviewed. Toxoplasmo sis precaution s reviewed. Reviewed office visit schedule during . Reviewed Quickening and normal FHTs. Carrier de tection, molecular genetics [id number] Z14.8 Acute vaginitis [id number] N76.0 Patient report yellow thick discharge for the past 2 weeks the patient denies other symptoms.V aginal discharge: - vaginitis/ STI swab sent, will treat per culture.- Reviewed vulvar hygiene: avoid tight or moist clothing, soaps, Vagisil and other wipes, cotton underwear only, and sleep without unscented detergent- Advised to figure out triggering factors (wet gym cloths, lotion, sensitivit y to partner, sensitive latex). Nausea and vomiting in [id number] O21.9 Patient reports ongoing N/V despite B6 and unisom. verified with the patient that she is taking B6 TID and unisom at . Health Concerns Section Related Observation LastModified by Organization Detai ls LastModified Time None Recorded Concern Status LastModified by Organization Details LastModified Time None Recorded Advance Directives Directive None Recorded Payers Encounter Date Sequence Insurance Name Policy Number Policy Lemus Covered Member ID Lemus Member ID Guarantor Name 03/11/2024 1 *SELF PAY* Eugene Schroeder 04/05/2024 1 [place] [id number] Tequila Schroeder Notes Date Note Type Note Provider Name and Address Organization Details Recorded Time 03/11/2024 text/html Patient is here today for a routine OB visit. She is currently at {{6 7 8 9 10 11 12 13 14 15 16 17 18 19 20 2 1 22 23 24 25 26 27 28 29 30 31 32 33 34 35 36 37 38 39 40 41 10.2 #}} weeks gestation. vitamins: {{yes* no}} She {{has* has not}} felt movement.She denies any complaints of the presence of vaginal bleed, leaking fluid, nausea, vomiting, headache or visual disturbances. She c/o abdominal cramps about a month ago. KATHY LOMBARDI NP [address], [place], [address], [facility] 03/11/2024 12:00:01 04/05/2024 text/html [facility] OB Return VisitReported bypatient. symptoms:no movement (consistent with gestational age); no bleeding; pelvic pressure; no contractions/mild cramping only;abnormal vaginal discharge Gastrointestinal:no gastrointestinal symptoms Cardiovascular:no cardiovascular symptoms Musculoskeletal:no joint pain Neurologic:no headache; no visual changes Breast:plans to breast feed Social/psychiatric issues:no reported concerns with support system; no anxiety; no symptoms of depression Tequila 13.6 weeks in office for 1st OB visitpt c/o of yellow vaginal discharge KATHY LOMBARDI NP [address], [place], [address], [facility] 04/07/2024 10:21:43 OBGyn Episode Ob Episode Information Episode Created Date Number of Fetuses Patient Bloodtype Patient rh Status Prepregnancy Weight lbs Domestic Partner Domestic Partner Phone Father Name Service Supervisor Status 04/05/20 24 1 O Positive OPEN Fetus Data First Name Last Name Admitted to NICU Weight (g) Sex Living Outcome Pediatric Complications Fetus ID Race Codes Race Delivery Type [id number] Magnus Calculation Initial Magnus Date Initial Exam Date Initial Exam Provider Initial Ultrasound Date Last Menstrual Period Date Ultra Sound Weeks Gestation 04/05/2024 0 Eighteen To Twenty Week Magnus Update Ultra Sound Date Fundal Height At Umbil Quickening Date Ultra Sound Latest Weeks Gestation Final Magnus Confirmed By Final Magnus Confirmed Date Final Magnus Date Ultra Sound Latest Days Gestation 0 10/06/19 25 0 Pre-brina Flowsheet Flowsheet Date 04/05/2024 Sidhu Score Blood Edema Fundus Height Fundus Units Glucose Ketones Leukocytes Nitrite Labor Signs Protein Cervic Dilation Cervic Effacement Cervic Station none neg Type Weight in lbs Pre/Post Dialysis Refused With clothes [id number] BP Diastolic BP Location Tested BP Systolic BP Type 72 L arm 116 sitting Fetus Heart Rate Present A 146 Present Fetus Movement A No Comments NOB and [place] labs ordered p atient to RTC on monday to have them drawn. Reports ongoing N/V Zofran Rxd. RTC in 3 wks. Menstrual History Last Menstrual Date Menses Monthly On Bcp Conception Prior Menses Frequency Hcg Plus Date Menarche Onset Age Delivery Information Delivery Date Delivery Type Labor Anesthesia Weeks Gestation Incision Type Labor Labor Length Hrs Delivered By Post Complications Tubal Sterilization Discharge Date Comments Discharge Information Feeding Method Contraceptive Method Maternal HG B and HCT Levels Ob Episode Information Episode Created Date Number of Fetuses Patient Bloodtype Patient rh Status Prepregnancy Weight lbs Domestic Partner Domestic Partner Phone Father Name Service Supervisor Status 03/11/20 24 1 DELETED Fetus Data First Name Last Name Admitted to NICU Weight (g) Sex Living Outcome Pediatric Complications Fetus ID Race Codes Race Delivery Type [id number] Magnus Calculation Initial Magnus Date Initial Exam Date Initial Exam Provider Initial Ultrasound Date Last Menstrual Period Date Ultra Sound Weeks Gestation 10/05/2024 03/11/2024 11/14/2023 0 Eighteen To Twenty Week Magnus Update Ultra Sound Date Fundal Height At Umbil Quickening Date Ultra Sound Latest Weeks Gestation Final Magnus Confirmed By Final Magnus Confirmed Date Final Magnus Date Ultra Sound Latest Days Gestation 0 0 Menstrual History Last Menstrual Date Menses Monthly On Bcp Conception Prior Menses Frequency Hcg Plus Date Menarche Onset Age 0511/14/2023 11 Delivery Information Delivery Date Delivery Type Labor Anesthesia Weeks Gestation Incision Type Labor Labor Length Hrs Delivered By Post Complications Tubal Sterilization Discharge Date Comments Discharge Information Feeding Method Contraceptive Method Maternal HG B and HCT Levels Ob Episode Information Episode Created Date Number of Fetuses Patient Bloodtype Patient rh Status Prepregnancy Weight lbs Domestic Partner Domestic Partner Phone Father Name Service Supervisor Status 03/11/20 24 1 CLOSED Fetus Data First Name Last Name Admitted to NICU Weight (g) Sex Living Outcome Pediatric Complications Fetus ID Race Codes Race Delivery Type 2721.55 2 F Full Term [id number] Magnus Calculation Initial Magnus Date Initial Exam Date Initial Exam Provider Initial Ultrasound Date Last Menstrual Period Date Ultra Sound Weeks Gestation 0 Eighteen To Twenty Week Magnus Update Ultra Sound Date Fundal Height At Umbil Quickening Date Ultra Sound Latest Weeks Gestation Final Magnus Confirmed By Final Magnus Confirmed Date Final Magnus Date Ultra Sound Latest Days Gestation 0 0 Menstrual History Last Menstrual Date Menses Monthly On Bcp Conception Prior Menses Frequency Hcg Plus Date Menarche Onset Age Delivery Information Delivery Date Delivery Type Labor Anesthesia Weeks Gestation Incision Type Labor Labor Length Hrs Delivered By Post Complications Tubal Sterilization Discharge Date Comments 9 mom doesnt know exact weight. she says almost 6 lbs Discharge Information Feeding Method Contraceptive Method Maternal HG B and HCT Levels
--- OUTSIDE RECORDS SUMMARY | 2024-10-01 20:51 | XMS_ITS | Clinical Summary ---
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
--- NOTE | 2024-10-01 21:43 | PC.NURSE ---
Dr. Muñoz responded to page, update on pt, blood pressure, tracing, and minimal variability when monitors were initiated. Orders received to administer D5 half NS bolus 500 ml then 125 ml/hr.
[2024-10-01] MEDS: DEXTROSE 5%/0.45% SOD CHL 1,000 ML 500 ML IV CONT (22:21)
--- NOTE | 2024-10-01 22:58 | PC.NURSE ---
Called Dr. Muñoz, vital signs orders for every four hours.
[2024-10-02] VITALS (100 sets, daily range): BP systolic 91–119; BP diastolic 47–81; PULSE 60–107; RESP 16; TEMP 36.6–36.9; O2SAT 89–100
--- NOTE | 2024-10-02 00:40 | OBADM ---
This patient, Tequila Mcneil, admitted to the OB room OB Post 115 for observation. Patient/family oriented to hospital policies and general routines including ID bracelet, bed and alarms, visiting hours, pain management, procedures, bathroom and other care routines, personal items, smoking policy, room service/diet, and visiting hours. Patient/Family are encouraged to report perceived risks to care and to ask questions if they do not understand what they are told or what they should do.
[2024-10-02] MEDS: DEXTROSE 5%/0.45% SOD CHL 1,000 ML 125 ML IV CONT (02:56)
[2024-10-02 08:51] LABS: Basophils Absolute Auto 0.1 K/mm3 (0.0-0.1); Basophils Percent Auto 0.7 % (0.2-1.2); Eosinophils Absolute Auto 0.1 K/mm3 (0-0.3); Eosinophils Percent Auto 1.1 % (0-4.4); Hematocrit 31.9 % (37.0-47.0); Immature Granulocyte Absolute 0.06 K/mm3 (0.00-0.031); Immature Granulocyte Percent A 0.7 % (0-0.5); Lymphocytes Absolute Auto 2.42 K/mm3 (0.9-3.2); Lymphocytes Percent Auto 27.3 % (18.3-44.2); Mean Corpuscular HGB Conc 34.5 g/dl (32-36); Mean Corpuscular Hemoglobin 30.8 pg (26-34); Mean Corpuscular Volume 89.4 fl (80-100); Mean Platelet Volume 10.1 fl (7.4-10.4); Monocytes Absolute Auto 0.5 K/mm3 (0.1-0.6); Neutrophils Absolute Auto 5.7 K/mm3 (1.3-6.7); Neutrophils Percent Auto 64.2 % (45.5-73.1); Platelet Count Result 226 k/mm3 (150-375); Red Blood Count 3.57 M/mm3 (4.2-5.4); Red Cell Distribution Width 13.2 % (11.5-14.5); White Blood Count 8.9 K/mm3 (4.5-10.0)
[2024-10-02 09:34] LABS: Syphilis IgG/IgM Antibody Negative (Negative)
[2024-10-02 09:47] LABS: HIV 1/2 Ab P24 Ag Result Negative (Negative)
--- NOTE | 2024-10-02 13:07 | P.HP_ITS ---
H&P: HPI History of Present Illness Date/Time: 10/02/24 13:07 Chief Complaint: Oligohydramnios Narrative: 24 y/o at 38 6/7. PNC significant for borderline oligohydramnios, she has had GILL 5.4-6.5. She has been getting surveillance testing which has been normal. GILL on 10/01 was 4.6. She declined LOF. She was informed this is oligohydramnios at term and recommendation for induction of labor. Discussed the induction process. Visual Education Director was present, televideo. Questions answered. Patient agreed to induction of labor. Review of Systems Review of Systems: All systems reviewed & are unremarkable except as noted in HPI and below Constitutional: Constitutional: Reports no additional constitutional complaints and Denies headache(s) Eyes: Eyes: Denies spots in vision ENT: Reports system reviewed and no additional complaints, except as documented and Denies headache(s) Cardiovascular: Cardiovascular: Denies chest pain and Denies dyspnea Respiratory: Respiratory: Denies dyspnea Gastrointestinal: Gastrointestinal: Reports no additional gastrointestinal complaints Genitourinary: Genitourinary: Reports amenorrhea Musculoskeletal: Musculoskeletal: Reports no additional musculoskeletal complaints Integumentary/Breasts: Skin/Breast: Denies breast mass and Denies rash Neurologic: Denies headache(s) Psychiatric: Psychiatric: Reports no additional psychiatric complaints [facility] Past Medical History Medical History Tachycardia Low blood pressure Anemia Family History Family History Mother Hypertension Social History Social History Smoking status: Never smoker Second hand tobacco smoke exposure: Yes (Jose D smokes) Alcohol intake: never Substance use: never Spiritual care concerns: No Meds Home Medications and Allergies Home Medications ?Medication ?Instructions ?Recorded ?Confirmed ?Type vitamin#30 30 mg iron-10 1 cap PO DAILY 05/15/24 10/01/24 History mg iron-folic acid 1 mg-omg3 capsule famotidine 10 mg tablet 10 mg PO DAILY PRN epigastric 06/07/24 10/01/24 Rx abdominal pain #14 tabs ferrous sulfate 325 mg (65 mg 325 mg PO DAILY 09/25/24 10/01/24 History iron) tablet,delayed release Allergies Allergy/AdvReac Type Severity Reaction Status Date / Time No Known Allergies Allergy Verified 10/01/24 23:30 Vital Signs Vital Signs - 24 hr 10/01/24 21:10 10/01/24 21:14 10/01/24 21:15 Temperature Pulse Rate Respiratory Rate Blood Pressure Pulse Oximetry 100 100 Oxygen Delivery Room Air 10/01/24 21:20 10/01/24 21:25 10/01/24 21:30 Temperature Pulse Rate 84 Respiratory Rate Blood Pressure 116/74 Pulse Oximetry 99 100 100 Oxygen Delivery 10/01/24 21:31 10/01/24 21:35 10/01/24 21:40 Temperature Pulse Rate 72 Respiratory Rate Blood Pressure 110/70 Pulse Oximetry 99 99 Oxygen Delivery 10/01/24 21:45 10/01/24 21:50 10/01/24 21:53 Temperature Pulse Rate Respiratory Rate Blood Pressure Pulse Oximetry 100 98 100 Oxygen Delivery 10/01/24 21:58 10/01/24 22:01 10/01/24 22:03 Temperature Pulse Rate 71 Respiratory Rate Blood Pressure 100/65 Pulse Oximetry 100 99 Oxygen Delivery 10/01/24 22:08 10/01/24 22:13 10/01/24 22:18 Temperature Pulse Rate Respiratory Rate Blood Pressure Pulse Oximetry 100 100 99 Oxygen Delivery 10/01/24 22:23 10/01/24 22:28 10/01/24 22:31 Temperature Pulse Rate 74 Respiratory Rate Blood Pressure 100/71 Pulse Oximetry 100 99 Oxygen Delivery 10/01/24 22:33 10/01/24 22:38 10/01/24 22:43 Temperature Pulse Rate Respiratory Rate Blood Pressure Pulse Oximetry 100 99 100 Oxygen Delivery 10/01/24 22:48 10/01/24 23:08 10/01/24 23:08 Temperature 97.5 F L 97.5 F L Pulse Rate 78 Respiratory Rate 16 Blood Pressure 112/64 Pulse Oximetry 100 100 Oxygen Delivery 10/01/24 23:09 10/02/24 01:10 10/02/24 01:15 Temperature Pulse Rate 69 Respiratory Rate Blood Pressure 112/64 Pulse Oximetry 99 100 Oxygen Delivery 10/02/24 01:20 10/02/24 01:25 10/02/24 01:30 Temperature Pulse Rate Respiratory Rate Blood Pressure Pulse Oximetry 99 99 98 Oxygen Delivery 10/02/24 01:35 10/02/24 01:40 10/02/24 01:45 Temperature Pulse Rate Respiratory Rate Blood Pressure Pulse Oximetry 98 99 98 Oxygen Delivery 10/02/24 01:50 10/02/24 01:55 10/02/24 02:00 Temperature Pulse Rate Respiratory Rate Blood Pressure Pulse Oximetry 98 98 97 Oxygen Delivery 10/02/24 02:05 10/02/24 02:10 10/02/24 02:15 Temperature Pulse Rate Respiratory Rate Blood Pressure Pulse Oximetry 98 98 98 Oxygen Delivery 10/02/24 02:20 10/02/24 02:25 10/02/24 02:30 Temperature Pulse Rate Respiratory Rate Blood Pressure Pulse Oximetry 98 98 98 Oxygen Delivery 10/02/24 02:35 10/02/24 02:40 10/02/24 02:45 Temperature Pulse Rate Respiratory Rate Blood Pressure Pulse Oximetry 99 98 98 Oxygen Delivery 10/02/24 02:50 10/02/24 02:53 10/02/24 02:54 Temperature 98.5 F Pulse Rate 76 Respiratory Rate Blood Pressure 91/52 L Pulse Oximetry 98 100 100 Oxygen Delivery 10/02/24 02:54 10/02/24 02:59 10/02/24 03:00 Temperature 98.5 F Pulse Rate 81 Respiratory Rate 16 Blood Pressure 91/52 L Pulse Oximetry 100 100 100 Oxygen Delivery 10/02/24 03:00 10/02/24 03:05 10/02/24 03:10 Temperature Pulse Rate Respiratory Rate Blood Pressure Pulse Oximetry 100 99 98 Oxygen Delivery 10/02/24 03:15 10/02/24 03:20 10/02/24 03:25 Temperature Pulse Rate Respiratory Rate Blood Pressure Pulse Oximetry 98 98 98 Oxygen Delivery 10/02/24 03:30 10/02/24 03:35 10/02/24 03:40 Temperature Pulse Rate Respiratory Rate Blood Pressure Pulse Oximetry 98 98 98 Oxygen Delivery 10/02/24 03:45 10/02/24 03:50 10/02/24 03:55 Temperature Pulse Rate Respiratory Rate Blood Pressure Pulse Oximetry 99 100 100 Oxygen Delivery 10/02/24 04:00 10/02/24 04:05 10/02/24 04:10 Temperature Pulse Rate Respiratory Rate Blood Pressure Pulse Oximetry 99 99 99 Oxygen Delivery 10/02/24 04:15 04/02/25 04:20 10/02/24 04:25 Temperature Pulse Rate Respiratory Rate Blood Pressure Pulse Oximetry 99 99 98 Oxygen Delivery 10/02/24 04:30 10/02/24 04:35 10/02/24 04:40 Temperature Pulse Rate Respiratory Rate Blood Pressure Pulse Oximetry 99 99 99 Oxygen Delivery 10/02/24 04:43 10/02/24 04:48 10/02/24 04:53 Temperature Pulse Rate Respiratory Rate Blood Pressure Pulse Oximetry 100 98 98 Oxygen Delivery 10/02/24 04:58 10/02/24 05:03 10/02/24 05:08 Temperature Pulse Rate Respiratory Rate Blood Pressure Pulse Oximetry 99 99 99 Oxygen Delivery 10/02/24 05:13 10/02/24 05:18 10/02/24 05:23 Temperature Pulse Rate Respiratory Rate Blood Pressure Pulse Oximetry 98 98 98 Oxygen Delivery 10/02/24 05:28 10/02/24 05:33 10/02/24 05:38 Temperature Pulse Rate Respiratory Rate Blood Pressure Pulse Oximetry 98 98 98 Oxygen Delivery 10/02/24 05:43 10/02/24 05:48 10/02/24 05:53 Temperature Pulse Rate Respiratory Rate Blood Pressure Pulse Oximetry 99 99 99 Oxygen Delivery 10/02/24 05:58 10/02/24 06:03 10/02/24 06:06 Temperature Pulse Rate Respiratory Rate Blood Pressure Pulse Oximetry 99 99 100 Oxygen Delivery 10/02/24 06:11 10/02/24 06:16 10/02/24 06:21 Temperature Pulse Rate Respiratory Rate Blood Pressure Pulse Oximetry 100 99 99 Oxygen Delivery 10/02/24 06:26 10/02/24 06:31 10/02/24 06:36 Temperature Pulse Rate Respiratory Rate Blood Pressure Pulse Oximetry 100 100 98 Oxygen Delivery 10/02/24 06:41 10/02/24 06:44 10/02/24 06:54 Temperature 97.9 F Pulse Rate 73 Respiratory Rate 16 Blood Pressure 111/81 Pulse Oximetry 99 100 Oxygen Delivery 10/02/24 06:59 10/02/24 07:04 10/02/24 07:09 Temperature Pulse Rate Respiratory Rate Blood Pressure Pulse Oximetry 100 100 100 Oxygen Delivery 10/02/24 07:14 10/02/24 07:19 10/02/24 07:28 Temperature Pulse Rate Respiratory Rate Blood Pressure Pulse Oximetry 100 100 100 Oxygen Delivery 10/02/24 07:33 10/02/24 07:38 10/02/24 07:43 Temperature Pulse Rate Respiratory Rate Blood Pressure Pulse Oximetry 100 100 100 Oxygen Delivery 10/02/24 07:48 10/02/24 07:53 10/02/24 12:34 Temperature Pulse Rate 79 Respiratory Rate Blood Pressure 106/57 L Pulse Oximetry 100 100 Oxygen Delivery 10/02/24 12:35 Temperature Pulse Rate Respiratory Rate Blood Pressure Pulse Oximetry 99 Oxygen Delivery Exam Const: General: no acute distress Eyes: General: appearance normal, both eyes and all related structures Resp: Effort & Inspection: normal respiratory effort Cardio: Rate: regular rate GI: Other: Gravid no fundal tenderness no right upper quadrant pain : Other: cervix 1/60/-2, soft, anterior Skin: General skin exam: no rashes or lesions noted Neuro: Cognition (Neuro): normal cognition Extrem: General: normal to inspection Psych: Mental Status: mental status grossly normal H&P: Results Labs Labs: Short CBC 10/02/24 Range/Units 08:36 WBC 8.9 (4.5-10.0) K/mm3 Hgb 11.0 L (12.0-15.0) g/dL Hct 31.9 L (37.0-47.0) % Plt Count 226 (150-375) k/mm3 Assessment and Plan Assessment and plan (1) Oligohydramnios: Code(s): O41.00X0 - Oligohydramnios, unspecified trimester, not applicable or unspecified Status: Acute Assessment and Plan: 1. Admit 2. Plan for pitocin induction upon bed availability. Continuous monitoring.
--- NOTE | 2024-10-02 17:23 | PC.NURSE ---
Admission completed using junior loan processor services. Omar wilderer #[id number].
[2024-10-02] MEDS: AMPICILLIN 2 GM/NS 100 ML 2 GM/100 ML BAG IVPB (21:38)
[2024-10-02] MEDS: LACTATED RINGERS 1,000 ML 125 ML IV CONT (21:39)
[2024-10-02] MEDS: OXYTOCIN 30 UNITS/NS 500 ML 30 UNITS/500 ML BAG IV CONT (21:39)
[2024-10-03] VITALS (288 sets, daily range): BP systolic 100–134; BP diastolic 47–94; PULSE 58–140; RESP 16; TEMP 36.2–37.6; O2SAT 90–100
[2024-10-03] MEDS: AMPICILLIN 1 GM/NS 50 ML 1 GM/50 ML BAG IVPB ×5 (01:32→17:23)
[2024-10-03] MEDS: LACTATED RINGERS 1,000 ML 125 ML IV CONT ×2 (03:05→12:09)
--- NOTE | 2024-10-03 04:29 | WPDANESEPP ---
Anes - Eval Pre Procedure Procedure: labor epidural Date/Time: 10/03/24 04:29 Surgeon: Jerrica Preop Diagnosis: labor pain Pre Op Diagnosis: low GILL Patient Data Age: 24 Gender: F Height: 1.62 m Weight: 75 kg Last Vital Signs Temp 36.6 C 10/03/24 02:30 Pulse 67 10/03/24 04:00 Resp 16 10/02/24 16:52 BP 111/62 10/03/24 04:00 Pulse Ox 98 10/03/24 04:27 O2 Del Method Room Air 10/01/24 21:14 Allergies Allergy/AdvReac Type Severity Reaction Status Date / Time No Known Allergies Allergy Verified 10/01/24 23:30 Home Medications ?Medication ?Instructions ?Recorded ?Confirmed ?Type vitamin#30 30 mg iron-10 1 cap PO DAILY 05/15/24 10/01/24 History mg iron-folic acid 1 mg-omg3 capsule famotidine 10 mg tablet 10 mg PO DAILY PRN epigastric 06/07/24 10/01/24 Rx abdominal pain #14 tabs ferrous sulfate 325 mg (65 mg 325 mg PO DAILY 09/25/24 10/01/24 History iron) tablet,delayed release Laboratory Tests 10/02/24 08:36 WBC 8.9 K/mm3 (4.5-10.0) RBC 3.57 L M/mm3 (4.2-5.4) Hgb 11.0 L g/dL (12.0-15.0) Hct 31.9 L % (37.0-47.0) MCV 89.4 fl (80-100) MCH 30.8 pg (26-34) MCHC 34.5 g/dl (32-36) RDW 13.2 % (11.5-14.5) Plt Count 226 k/mm3 (150-375) MPV 10.1 fl (7.4-10.4) Immature Gran % (Auto) 0.7 H % (0-0.5) Neut % (Auto) 64.2 % (45.5-73.1) Lymph % (Auto) 27.3 % (18.3-44.2) Weston % (Auto) 6.0 % (2.6-8.5) Eos % (Auto) 1.1 % (0-4.4) Baso % (Auto) 0.7 % (0.2-1.2) Lymph # (Auto) 2.42 K/mm3 (0.9-3.2) Weston # (Auto) 0.5 K/mm3 (0.1-0.6) Eos # (Auto) 0.1 K/mm3 (0-0.3) Baso # (Auto) 0.1 K/mm3 (0.0-0.1) Abs Immat Gran (auto) 0.06 H K/mm3 (0.00-0.031) Absolute Neuts (auto) 5.7 K/mm3 (1.3-6.7) Absolute Nucleated RBC 0.000 K/mm3 (0.0-0.012) Nucleated RBC % 0.0 % (0.0-0.2) Syphilis IgG/IgM Ab Negative (Negative) HIV 1&2 Ab/P24 Ag 4thGn Negative (Negative) Blood Type O Positive Antibody Screen Negative ECG: NSR w/ short MN interval Patient hx anesthesia problems: none Family hx anesthesia problems: none Results Review: All pre-operative results and documents have been reviewed as part of the pre-operative evaluation. [facility] Past Medical History Medical History Tachycardia Low blood pressure Anemia Family History Family History Mother Hypertension Social History Social History Smoking status: Never smoker Second hand tobacco smoke exposure: Yes (Jose D smokes) Alcohol intake: never Substance use: never Do You Feel Safe in your Home?: No Lack of Transportation: No Lack of Food: Never True Current Housing: I Have Housing Concerned About Future Housing: No Difficulty Paying Gas/Electric Bills: No Difficulty Paying for Meds: No Currently Unemployed: No Education: Grade School Difficulty w/ Childcare or Family Care: No Spiritual care concerns: No Exam Day of Procedure 10/03/24 04:29 Patient weight: normal Heart: regular rate and rhythm Lungs: clear to auscultation and normal air movement Airway: Mallampati scale class 1 Neurological: alert and oriented
--- NOTE | 2024-10-03 14:23 | PM.OBPNLAB ---
Pain Control Date/time seen: 10/03/24 0850 Cat 1, cervix /2, AROM clear.
--- NOTE | 2024-10-03 14:24 | PM.OBPNLAB ---
Pain Control Date/time seen: 10/03/24 14:24 cat1, cervix /-2 IUPC placed. Continue pitocin.
[2024-10-03] MEDS: fentaNYL CITRATE INJ (*CRX) 100 MCG/2 ML VIAL IV PUSH (17:52)
[2024-10-03] MEDS: LIDOCAINE 1% LOCAL INJ 20 ML VIAL (18:54)
[2024-10-03] MEDS: METHYLERGONOVINE MALEATE 0.2 MG/ML VIAL (18:57)
[2024-10-03] MEDS: fentaNYL CITRATE INJ (*CRX) 100 MCG/2 ML VIAL 50 MCG IV PUSH (19:00)
[2024-10-03] MEDS: OXYTOCIN 30 UNITS/NS 500 ML 30 UNITS/500 ML BAG 125 UNITS IV CONT (19:11)
--- NOTE | 2024-10-03 19:59 | PM.OBPRVD ---
OB - Vaginal Delivery Note Procedure Delivery date: 10/03/24 Events: Oligohydramnios and Positive Group B Strep (GBS) Induction method: Per Pitocin Protocol Delivery augmentation: Rupture of Membranes and Pitocin Delivery monitor: External FHT, External Uterine and Internal Uterine Route of delivery: Episiotomy description: None Laceration Description: Perineal - 2nd Degree and Cervical (posterior) Delivery repair: vicryl (2.0 and 3.0 vicryl) Specimen: No Quantitative Blood Loss (ml): 400 Anesthesia type: Local Disposition: Floor Complications: No immediate complications Narrative: She was admitted for induction of labor due to oligohydramnios. She had pitocin induction. She had ampicillin for GBS prophylaxis. She then had AROM, clear fluid. She had IUPC placed to better assess contractions. She progressed to active labor and progressed to complete. She delivered a male . 's nose and mouth suctioned at perineum. THe shoulders and the rest of infant delivered with gentle traction. was vigorously crying and placed on maternal abdomen. Delayed cord clamping for one minute and then cord doubly clamped and cut. Pitocin was started. Placenta delivered spontaneously and intact. She had increased vaginal bleeding and then intermittent uterine hypotonia. She was given 0.2mg Metergine IM. The lower uterine segment cleared of clot. She had more vaginal bleeding. The cervix was inspected and there was a posterior cervical laceration. She was given IV analgesia. This was repaired with 3.0 vicryl. Bleeding improved.She was given lidocaine at perineal area. The second degree perineal laceration repaired with 2.0 vicryl. Minimal lochia. She tolerated procedure well. Sponge count correct. [place] Baby Date of : 10/03/24 Gestational Age by Date: 39 gender: Male Weight (pounds): 7 Weight (ounces): 9 presentation: vertex position: Right Occiput Anterior Placenta delivery description: Expressed Cord Vessel Description: 3 Vessels, Clamped/Cut and Delayed Cord Clamping score one minute: 8 score five minutes: 9
[2024-10-03] MEDS: BENZOCAINE 20% AER SPR (*SP) 56 GM CAN 1 SPRAY TOPICAL (21:24)
[2024-10-03] MEDS: WITCH HAZEL 40 PADS 1 PAD TOPICAL (21:25)
[2024-10-04 02:34] VITALS: BP 116/71; PULSE 97; RESP 16; TEMP 36.8; O2SAT 96
[2024-10-04] MEDS: LANOLIN (LANSINOH) 7.5 GM CREAM 1 APPLIC TOPICAL (05:37)
[2024-10-04] MEDS: IBUPROFEN 600 MG TABLET PO (05:37)
[2024-10-04 05:47] LABS: Hematocrit 27.8 % (37.0-47.0); Hemoglobin 9.4 g/dL (12.0-15.0)
[2024-10-04 05:50] VITALS: BP 99/63; PULSE 93; RESP 16; TEMP 36.5; O2SAT 99
[2024-10-04 08:10] VITALS: BP 97/61; PULSE 91; RESP 16; TEMP 36.7; O2SAT 100
[2024-10-04] MEDS: DOCUSATE SODIUM 100 MG CAPSULE PO ×2 (08:43→16:54)
[2024-10-04] MEDS: MULTIVIT/MIN/PREN/FOL AC/IRON TABLET 1 TAB PO (08:43)
[2024-10-04] MEDS: POLYSACCHARIDE IRON COMPLEX 150 MG CAPSULE PO ×2 (08:43→16:54)
[2024-10-04 12:24] VITALS: BP 95/60; PULSE 81; RESP 18; TEMP 36.7; O2SAT 99
--- NOTE | 2024-10-04 12:27 | P.PNOB_ITS ---
OB - PN: Subj Subjective Date/time seen: 10/04/24 12:27 Patient comments: pain well controlled, tolerating diet and other (Decreasing lochia.) baby status: doing well and nursing well OB - PN: Obj Data Labs 10/04/24 05:19 Labs: Laboratory Results - last 24 hr 10/04/24 05:19 Hgb 9.4 L Hct 27.8 L OB - PN A/P Assessment and Plan (1) Vaginal delivery: Code(s): O80 - Encounter for full-term uncomplicated delivery Status: Acute Assessment and Plan: Doing well. Plan day: 1 Plan: routine care Comments: Patient doing well. Time Spent With Patient Time: Total time spent is greater than 50% in coordination of care (as documented) at patient's floor/unit and/or counseling patient: Exam 2 Psych: Affect: normal affect Other: Abd: fundus firm below umbilicus, nontender Perineum: healing Ext: nontender
--- NOTE | 2024-10-04 12:28 | PM.OBDSVD ---
DS: Admitting Diagnosis Discharge Date 10/05/24 Admitting Diagnosis Oligohydramnios DS: Discharge Diagnosis Discharge Diagnosis (1) Vaginal delivery: Code(s): O80 - Encounter for full-term uncomplicated delivery Status: Acute OB - DS: Summary Hospital Course Hospital Course: She was admitted for induction of labor due to oligohydramnios. She had Pitocin induction. She had AROM. She progressed to active labor and delivered a male infant. She had increased bleeding and intermittent hypotonia. She did have a cervical laceration repaired. Hemostasis noted. Also had repair of second degree perineal laceration. She tolerated procedure well. She did well . On day 1 she was tolerating regular diet, ambulating well, had adequate pain control. She was given oral iron for mild anemia. No hypovolemic symptoms. OB Procedures : NST and Ultrasound OB Procedures Intrapartum: Spontaneous Vag Delivery OB Procedures: : None Peripartum Data Delivery Method: Natural Vaginal Laceration Description: Perineal - 2nd Degree and Cervical (posterior) Episiotomy description: None complications: none Status at Discharge Functional status at discharge: independent ambulation Time Spent with Patient Time attestation: Total time spent providing and/or coordinating discharge services: Exam Const: General: cooperative Orientation/consciousness: oriented to person, oriented to place and oriented to time HENMT: Face/Nose/Sinus: Normal external nose present Eyes: General: appearance normal, both eyes and all related structures Resp: Effort & Inspection: normal respiratory effort GI: Inspection: normal to inspection Skin: General skin exam: normal color Neuro: General: oriented to person, oriented to place and oriented to time Extrem: General: normal to inspection and no calf tenderness Psych: Appearance: grossly normal Mental Status: mental status grossly normal DS: Data Data Completed and Pending Labs on day of discharge: Labs from last 24 hours 10/04/24 05:19 Hgb 9.4 L Hct 27.8 L Discharge Plan Discharge Attending physician on discharge: Edwin Becerril Discharging Clinician: Edwin Becerril Anticipated Discharge Date/Time: 10/05/24 12:32 Patient Disposition: Home Activity: may shower, no straining and pelvic rest Diet: regular Discharge Instructions: Education: Mom and Baby Guide Given to: Mother Follow-Up: Call your delivering provider's office for an appointment to be seen in: 4 Weeks Mom and baby should come to the [facility] for the follow-up appointment. Appointment Date/Time: October 07, 2024 at 9:00 am What to expect at your follow-up visit: Blood Pressure Check Physical Assessment Call [phone] if you are unable to keep your appointment time. BREAST CARE: * Wear a snug supportive bra. * For engorgement discomfort: Breast Feeding: * Apply warm moist washcloths * Express milk as needed to relieve engorgement * Wear loose clothing Bottle Feeding: * May apply ice packs * For sore nipples: * Identify correct latch-on * Apply warm moist washcloths before and after nursing * Air dry nipples after nursing * May apply Lansinoh cream to nipples EPISIOTOMY/PERINEAL CARE: * Until bleeding stops, use your dione bottle after urinating * Change your pad frequently throughout the day * You may take sitz baths several times a day (fill your bathtub with warm water and soak for 20 minutes.) Do NOT bathe in the water * No tub baths until seen by your physician - You may shower ACTIVITY: * Rest as much as possible. * Do not exercise or lift anything heavier than your baby (such as laundry or other children.) * Do not put anything into the vagina. No douching, tampons, or sexual activity until seen by physician. NOTIFY PHYSICIAN IF YOU HAVE ANY QUESTIONS OR IF ANY OF THE FOLLOWING SYMPTOMS OCCUR: * If your episiotomy or incision becomes red, swollen, or more painful than what you have experienced in the hospital. * If your vaginal bleeding becomes foul smelling. * If your vaginal bleeding becomes more heavy than a period or if your bleeding changes from pink to bright red. However, you may pass an occasional walnut-sized clot once or twice for the first week . * If you experience a sharp, shooting pain in you calves. * If you discover a hard, reddened area on your breast or if you experience flu-like symptoms. DIET: * Eat regular, well-balanced meals. * Drink plenty of fluids daily. If , drink to thirst. Patient Instructions: Antibiotic Form Patient Language: Tajik Stand Alone Forms: General Discharge Information Follow-up/Referrals: Edwin Becerril MD [Physician] - Call for Appointment Discharge Medications: Continued PNV #[id number] acid-omega3 30 mg iron-10 mg iron-1 mg capsule 1 cap PO DAILY famotidine 10 mg tablet 10 mg PO DAILY PRN (Reason: epigastric abdominal pain) Qty: 14 0RF ferrous sulfate 325 mg (65 mg iron) tablet,delayed release (DR/EC) 325 mg PO DAILY Date of admission: 10/01/24 20:42 Primary Care Provider: UNKNOWN,DOCTOR Admitting Provider: Edwin Becerril Attending physician on admission: Edwin Becerril Condition: Stable
[2024-10-04 16:00] VITALS: BP 100/62; PULSE 80; RESP 16; TEMP 36.7; O2SAT 100
--- NOTE | 2024-10-04 17:35 | PC.NURSE ---
1715. Introductions were made, then consulted with patient to assess needs related to . Mother's friend Larissa translated our conversation. mom reports she breastfed her first baby for a few months. Observed mother latching to the left breast breast in cross cradle position. was able to maintain an appropriate latch. Encouraged understanding of the benefits of skin to skin (demonstrating unwrapping infant and placing upright on her chest), stimulating with massage touch, changing positions to encourage wakefulness, how to watch for early feeding cues, responsive feeding, feeding on demand (aiming for 8-12 times in 24 hours, about every 2-3 hours), milk production, building/maintaining a milk supply, duration of feeding, signs of adequate intake/output and how to record on the feeding sheet. Mother works well with her with encouragement and education. Reviewed positioning and ear, shoulder, hip alignment, supporting the breast to facilitate a deep latch, asymmetrical latch (off-center), leading with the chin with a big, open, wide gape and body close to mother. Mother complains of nipple pain/discomfort for initial latch on & at times during the feeding. Mom taught to delatch infant in the appropriate way and attempt to relatch infant with a deeper latch that is not painful. We reviewed alignment and positioning with the asymetrical latch. Mother given lanolin. Encouraged mother to keep infant awake and nursing at the breast for 15 minutes. Mother taught to listen for infant swallowing during feedings. Reviewed using the blue feeding sheet to record time and duration of feeding. Mother voiced understanding of the education shared, to call for assistance if the does not latch or if there is discomfort with .Inpatient resources provided feeding sheet, name written on the communication board, and Handout. Parents voiced understanding of information, demonstrated learning and will name/number on communication board. Reported to the Primary RN. ?
[2024-10-04 21:00] VITALS: BP 92/58; PULSE 93; RESP 16; TEMP 36.7; O2SAT 100
[2024-10-05] MEDS: IBUPROFEN 600 MG TABLET PO ×2 (01:45→13:12)
[2024-10-05 07:45] VITALS: BP 87/53; PULSE 61; RESP 16; TEMP 36.7; O2SAT 100
--- NOTE | 2024-10-05 10:38 | PM.OBDSVD ---
DS: Admitting Diagnosis Discharge Date 10/05/2024 Admitting Diagnosis OB - DS: Summary Hospital Course Hospital Course: She was admitted for induction of labor due to oligohydramnios. She had Pitocin induction. She had AROM. She progressed to active labor and delivered a male infant. She had increased bleeding and intermittent hypotonia. She did have a cervical laceration repaired. Hemostasis noted. Also had repair of second degree perineal laceration. She tolerated procedure well. She did well . On day 1 she was tolerating regular diet, ambulating well, had adequate pain control. She was given oral iron for mild anemia. No hypovolemic symptoms. OB Procedures : None OB Procedures Intrapartum: Spontaneous Vag Delivery OB Procedures: : None Peripartum Data Laceration Description: Perineal - 2nd Degree and Cervical (posterior) Episiotomy description: None Time Spent with Patient Time attestation: Total time spent providing and/or coordinating discharge services: Discharge Plan Discharge Attending physician on discharge: Edwin Becerril Discharging Clinician: Edwin Becerril Anticipated Discharge Date/Time: 10/05/24 12:32 Patient Disposition: Home, Self-Care Activity: may shower, no straining and pelvic rest Diet: regular Patient Instructions: Antibiotic Form Patient Language: Vietnamese Stand Alone Forms: General Discharge Information Follow-up/Referrals: Edwin Becerril MD [Physician] - Call for Appointment Discharge Medications: No Action PNV #[id number] acid-omega3 30 mg iron-10 mg iron-1 mg capsule 1 cap PO DAILY famotidine 10 mg tablet 10 mg PO DAILY PRN (Reason: epigastric abdominal pain) Qty: 14 0RF ferrous sulfate 325 mg (65 mg iron) tablet,delayed release (DR/EC) 325 mg PO DAILY Date of admission: 10/01/24 20:42 Primary Care Provider: UNKNOWN,DOCTOR Admitting Provider: Edwin Becerril Attending physician on admission: Edwin Becerril Condition: Stable
[2024-10-05] MEDS: DOCUSATE SODIUM 100 MG CAPSULE PO (11:20)
[2024-10-05] MEDS: POLYSACCHARIDE IRON COMPLEX 150 MG CAPSULE PO (11:20)
[2024-10-05] MEDS: MULTIVIT/MIN/PREN/FOL AC/IRON TABLET 1 TAB PO (11:20)
[2024-10-07 09:30] VITALS: BP 114/71; PULSE 78; RESP 18; TEMP 36.7; O2SAT 100
== END 2024-10-05 16:10 | disposition home or self-care (01) | DRG 560 ==
LOC: ANHOB2 10-04 12:33 → ANHOBPP 10-07 11:40 → ANHLDR 10-07 11:40
PROVIDERS: Admitting Provider Obstetrics & Gynecology; Visit Provider Obstetrics & Gynecology
DX: O99.824 Streptococcus B carrier state complicating childbirth (principal); O70.1 Second degree perineal laceration during delivery; O41.03X0 Oligohydramnios, third trimester, not applicable or unspecified; Z3A.39 39 weeks gestation of pregnancy; Z37.0 Single live birth
CPT/HCPCS: 36415; 85014; 85018; 85025; 86593; 86703; 86850; 86900; 86901; A9270; G0432; J0290; J2003; J2210; J2590; J3010; J7120